=== PATIENT | female | born 1965 | race Caucasian/White ===

== ENCOUNTER 2020-01-26 09:21 | Inpatient (IN) | payer MEDICAID, OTHER ==
[~2020-01-26] VITALS: Ht 154.9 cm; Wt 94.4 kg
[2020-01-26] VITALS (31 sets, daily range): BP systolic 100–175; BP diastolic 40–110
[2020-01-26] MEDS ORDERED: VECURONIUM BROMIDE 10 MG/VIAL IV ONE ×2 (09:33→09:45)
[2020-01-26] MEDS ORDERED: ETOMIDATE 2MG/ML 10ML VIAL IV ONE ×2 (09:33→09:45)
[2020-01-26] MEDS ORDERED: PROPOFOL 10MG/ML 100ML 100 ML IV ONE (09:43)
[2020-01-26] MEDS ORDERED: PROPOFOL 10MG/ML 100ML 100 ML IV SCH (09:45)
[2020-01-26 09:58] LABS: BASOPHILS % 0.4 % (0.0-2.0); HEMATOCRIT. 34.4 % (36.0-48.0); HEMOGLOBIN. 11.1 g/dL (12.0-16.0); LYMPHOCYTES % 31.9 % (20.0-50.0); MEAN CORPUSCULAR HEMOGLOBIN 30.8 pg (28.0-32.0); MEAN CORPUSCULAR VOLUME 95.6 fL (81.0-99.0); MEAN PLATELET VOLUME 10.7 fl (7.4-10.4); MONOCYTES % 8.1 % (2.0-8.0); NEUTROPHILS % 59.6 % (40.0-76.0); PLATELET 90 x1000/uL (130-400); RED CELL DISTRIBUTION WIDTH 23.5 % (11.6-14.6)
[2020-01-26 09:59] LABS: CLARITY URINE CLEAR (CLEAR); COLOR URINE YELLOW (YELLOW); KETONES URINE NEGATIVE (NEGATIVE); LEUKOCYTE ESTERASE URINE NEGATIVE (NEGATIVE); NITRITE URINE NEGATIVE (NEGATIVE); OCCULT BLOOD URINE NEGATIVE (NEGATIVE); PROTEIN URINE 1+ (NEGATIVE); SPECIFIC GRAVITY URINE 1.022 (1.005-1.030)
[2020-01-26 10:07] LABS: CHLORIDE 109 mEq/L (98-107)
[2020-01-26 10:09] LABS: PROTHROMBIN TIME 63.8 sec (9.6-11.0)
[2020-01-26 10:11] LABS: ETHANOL BLOOD < 10 mg/dL
[2020-01-26 10:13] LABS: LDL CHOLESTEROL 51 mg/dL (5-100)
[2020-01-26 10:19] LABS: INR 6.2
[2020-01-26] MEDS ORDERED: NICARDIPINE 40MG/200ML PREMIX 200 ML IV ONE (10:28)
[2020-01-26] MEDS ORDERED: LEVETIRACETAM 500MG PREMIX 100 ML IV ONE (10:30)
[2020-01-26] MEDS ORDERED: ESMOLOL 2500MG PREMIX 250 ML IV ONE (10:30)
[2020-01-26] MEDS ORDERED: NICARDIPINE 40MG/200ML PREMIX 200 ML IV SCH (10:30)
[2020-01-26] MEDS ORDERED: POTASSIUM CHLORIDE INJ 40 MEQ in DEXT 5% WATER 250 ML IV ONE (10:45)
[2020-01-26] MEDS ORDERED: PHYTONADIONE 10 MG in DEXTROSE 5% WATER 50 ML IV ONE (10:45)
[2020-01-26] MEDS ORDERED: MANNITOL 20% 500 ML IV NR (10:45)
[2020-01-26] MEDS ORDERED: MANNITOL 20% (20GM/100ML) BAG 500ML PREMIX IV ONE (10:45)
[2020-01-26] MEDS ORDERED: HUMAN PROTHROMBIN COMPLX (PCC) 500 UNITS VIAL IV NR (11:00)
[2020-01-26] MEDS ORDERED: BACITRACIN 15GM TUBE TOP ONE (11:07)
[2020-01-26] MEDS ORDERED: THROMBIN (BOVINE) 5000 UNITS/VIAL TOP ONE (11:07)
[2020-01-26] MEDS ORDERED: LIDOCAINE HCL/EPINEPHRINE 1%-EPI 1:100,000 20 ML VIAL ONE (11:07)
[2020-01-26] MEDS ORDERED: NORMAL SALINE 0.9% 10 ML SYR ONE (11:07)
[2020-01-26] MEDS ORDERED: BACITRACIN 50,000 UNITS/VIAL ONE (11:08)
[2020-01-26] MEDS ORDERED: PHYTONADIONE 10MG/ML AMP SUBCUT ONE (11:15)
[2020-01-26 11:21] LABS: *AMPHETAMINES SCREEN URINE NEGATIVE (NEGATIVE); *BARBITURATES SCREEN URINE NEGATIVE (NEGATIVE)
[2020-01-26 11:22] LABS: *BENZODIAZEPINES SCREEN URINE NEGATIVE (NEGATIVE); *COCAINE SCREEN URINE NEGATIVE (NEGATIVE); METHADONE URINE SCREEN NEGATIVE (NEGATIVE); OPIATES URINE SCREEN NEGATIVE (NEGATIVE); PHENCYCLIDINE URINE SCREEN NEGATIVE (NEGATIVE)
[2020-01-26 11:23] LABS: CANNABINOID URINE SCREEN NEGATIVE (NEGATIVE)
[2020-01-26 11:42] LABS: PLATELET ESTIMATE DECREASED
[2020-01-26] MEDS ORDERED: FENTANYL CITRATE/PF 50MCG/ML 2ML VIAL ONE ×2 (12:05→12:10)
[2020-01-26] MEDS ORDERED: PROPOFOL 200MG/20ML VIAL IV ONE (12:05)
[2020-01-26] MEDS ORDERED: ESMOLOL HCL 10MG/ML 10ML VIAL IV ONE (12:13)
[2020-01-26] MEDS ORDERED: ESMOLOL 2500MG PREMIX 250 ML IV PRN (12:15)
[2020-01-26] MEDS ORDERED: NICARDIPINE 100 MG in SODIUM CHLORIDE 0.9% 60 ML IV PRN (12:15)
[2020-01-26] MEDS ORDERED: DEXAMETHASONE 4MG/ML 1ML VIAL ONE (12:48)
[2020-01-26] MEDS ORDERED: PHENYLEPHRINE HCL 10 MG/ML 1ML (IV VIAL) IV ONE (12:49)
[2020-01-26] MEDS ORDERED: EPHEDRINE SULFATE 50MG/ML VIAL ONE (12:49)
[2020-01-26] MEDS ORDERED: CEFAZOLIN SODIUM 1000MG/VIAL ONE (12:49)
[2020-01-26] MEDS ORDERED: IOHEXOL-350 100 ML BOTTLE ONE (13:37)
[2020-01-26] MEDS: DEXT 5%/LACTATED RINGERS 1,000 ML IV SCH (13:38)
[2020-01-26] MEDS: MORPHINE SULFATE 4 MG/ML CPJ (NOT FOR IM USE) IV NR ×2 (13:59→16:58)
[2020-01-26] MEDS: NICARDIPINE 100 MG in SODIUM CHLORIDE 0.9% 60 ML IV PRN ×2 (14:00→21:15)
[2020-01-26 14:18] LABS: BG BASE EXCESS -4.7 mmol/L (-2.0-2.0); BG CARBOXYHEMOGLOBIN 0.3 % (0.5-1.5); BG DEOXYHEMOGLOBIN 0.5 % (0.0-5.0); BG FRACTION INSPIRED OXYGEN 100; BG HCO3 ACT 20.5 mmol/L (22.0-26.0); BG METHEMOGLOBIN 0.1 % (0.0-1.5); BG OXYGEN SATURATION 99.5 % (92.0-98.5); BG OXYHEMOGLOBIN 99.1 % (94.0-97.0); BG PCO2 38.5 mmHg (35.0-45.0); BG PH 7.345 (7.350-7.450); BG PO2 385.7 mmHg (75.0-100.0); BG SAMPLE SITE A-LINE; BG TIDAL VOLUME(mL) 500 mL; BG TOTAL HEMOGLOBIN 10.2 g/dL (12.0-18.0); BG VENT MODE VENT - A/C; BG VENT RATE 12 set
[2020-01-26] MEDS ORDERED: LORAZEPAM 2MG/ML CPJ IV PRN (14:30)
[2020-01-26] MEDS ORDERED: MORPHINE SULFATE 4 MG/ML CPJ (NOT FOR IM USE) IV NR (15:00)
[2020-01-26] MEDS: LEVETIRACETAM 500MG PREMIX 100 ML IV SCH (16:45)
[2020-01-26] MEDS ORDERED: IPRATROPIUM/ALBUTEROL 0.5-3(2.5)MG/3ML NEB HHN PRN (17:00)
[2020-01-26 17:30] LABS: INR 1.9; PROTHROMBIN TIME 20.6 sec (9.6-11.0)
[2020-01-26] MEDS ORDERED: PHENYTOIN SODIUM 500 MG in SODIUM CHLORIDE 0.9% 50 ML IV NR (18:30)
[2020-01-26] MEDS: CEFAZOLIN 1000MG PREMIX 50 ML IV SCH (21:24)
[2020-01-26] MEDS: MORPHINE SULFATE 4 MG/ML CPJ (NOT FOR IM USE) IV PRN (22:42)
[2020-01-26] MEDS: PHENYTOIN SODIUM 100MG/2ML VIAL IV SCH (22:42)
[2020-01-27] VITALS (83 sets, daily range): BP systolic 105–147; BP diastolic 39–53
[2020-01-27] MEDS: NICARDIPINE 100 MG in SODIUM CHLORIDE 0.9% 60 ML IV PRN ×3 (03:07→23:11)
[2020-01-27 06:29] LABS: CHLORIDE 115 mEq/L (98-107)
[2020-01-27] MEDS: PHENYTOIN SODIUM 100MG/2ML VIAL IV SCH ×3 (06:42→22:05)
[2020-01-27] MEDS: CEFAZOLIN 1000MG PREMIX 50 ML IV SCH ×3 (06:42→22:05)
[2020-01-27 06:51] LABS: HEMATOCRIT. 25.5 % (36.0-48.0); HEMOGLOBIN. 8.3 g/dL (12.0-16.0); MEAN CORPUSCULAR HEMOGLOBIN 31.4 pg (28.0-32.0); MEAN CORPUSCULAR VOLUME 96.6 fL (81.0-99.0); MEAN PLATELET VOLUME 10.8 fl (7.4-10.4); PLATELET 68 x1000/uL (130-400); RED BLOOD CELL COUNT 2.64 mill/uL (4.2-5.4); RED CELL DISTRIBUTION WIDTH 23.9 % (11.6-14.6)
[2020-01-27] MEDS: LEVETIRACETAM 500MG PREMIX 100 ML IV SCH ×2 (08:36→22:05)
[2020-01-27] MEDS: PANTOPRAZOLE SODIUM 40 MG/VIAL IV SCH (08:36)
[2020-01-27] MEDS: MORPHINE SULFATE 4 MG/ML CPJ (NOT FOR IM USE) IV PRN ×2 (08:38→22:09)
[2020-01-27 08:48] LABS: BG BASE EXCESS -0.9 mmol/L (-2.0-2.0); BG CARBOXYHEMOGLOBIN 0.8 % (0.5-1.5); BG DEOXYHEMOGLOBIN 1.8 % (0.0-5.0); BG FRACTION INSPIRED OXYGEN 40; BG HCO3 ACT 23.9 mmol/L (22.0-26.0); BG METHEMOGLOBIN 0.5 % (0.0-1.5); BG OXYGEN SATURATION 98.2 % (92.0-98.5); BG OXYHEMOGLOBIN 96.9 % (94.0-97.0); BG PCO2 39.9 mmHg (35.0-45.0); BG PH 7.395 (7.350-7.450); BG PO2 122.3 mmHg (75.0-100.0); BG SAMPLE SITE A-LINE; BG TIDAL VOLUME(mL) 500 mL; BG TOTAL HEMOGLOBIN 8.7 g/dL (12.0-18.0); BG VENT MODE VENT - A/C; BG VENT RATE 12 set
[2020-01-27] MEDS ORDERED: METF-414 MT (17:50)
[2020-01-27] MEDS ORDERED: PRED10TA23 MT (17:50)
[2020-01-27] MEDS ORDERED: DOCU-150 MT (17:51)
[2020-01-27 18:26] LABS: NUCLEATED RED BLOOD CELLS 2 /100 WBC; PLATELET ESTIMATE DECREASED
[2020-01-28] VITALS (128 sets, daily range): BP systolic 90–145; BP diastolic 26–71
[2020-01-28] MEDS: MORPHINE SULFATE 4 MG/ML CPJ (NOT FOR IM USE) IV PRN ×2 (01:10→20:23)
[2020-01-28] MEDS: ACETAMINOPHEN 650MG SUPP PR PRN ×2 (03:03→12:21)
[2020-01-28] MEDS: CEFAZOLIN 1000MG PREMIX 50 ML IV SCH ×3 (05:17→23:05)
[2020-01-28] MEDS: NICARDIPINE 100 MG in SODIUM CHLORIDE 0.9% 60 ML IV PRN ×3 (05:19→23:05)
[2020-01-28] MEDS: PHENYTOIN SODIUM 100MG/2ML VIAL IV SCH ×3 (06:09→23:05)
[2020-01-28 06:32] LABS: CHLORIDE 119 mEq/L (98-107)
[2020-01-28] MEDS ORDERED: SODIUM BICARBONATE 4% (2.4MEQ) 5ML VIAL IV ONE (09:11)
[2020-01-28] MEDS ORDERED: LIDOCAINE HCL 1% 20ML VIAL (Pyxis) INJ ONE (09:11)
[2020-01-28] MEDS: PANTOPRAZOLE SODIUM 40 MG/VIAL IV SCH (09:14)
[2020-01-28] MEDS: LEVETIRACETAM 500MG PREMIX 100 ML IV SCH ×2 (09:15→20:17)
[2020-01-28] MEDS: DEXT 5%/LACTATED RINGERS 1,000 ML IV SCH ×3 (09:15→23:54)
[2020-01-28 11:09] LABS: HEMATOCRIT. 21.5 % (36.0-48.0); MEAN CORPUSCULAR HEMOGLOBIN 30.7 pg (28.0-32.0); MEAN CORPUSCULAR VOLUME 97.3 fL (81.0-99.0); MEAN PLATELET VOLUME 10.7 fl (7.4-10.4); RED BLOOD CELL COUNT 2.21 mill/uL (4.2-5.4); RED CELL DISTRIBUTION WIDTH 22.7 % (11.6-14.6)
[2020-01-28 11:51] LABS: HEMOGLOBIN. 6.8 g/dL (12.0-16.0)
[2020-01-28 11:52] LABS: PLATELET 47 x1000/uL (130-400)
[2020-01-28 17:46] LABS: PLATELET ESTIMATE MARKEDLY DECREASED
[2020-01-29] VITALS (94 sets, daily range): BP systolic 106–150; BP diastolic 33–131
[2020-01-29] MEDS: ACETAMINOPHEN 650MG SUPP PR PRN (00:02)
[2020-01-29] MEDS: PHENYTOIN SODIUM 100MG/2ML VIAL IV SCH ×3 (05:19→23:07)
[2020-01-29] MEDS: CEFAZOLIN 1000MG PREMIX 50 ML IV SCH ×3 (05:20→23:06)
[2020-01-29] MEDS: NICARDIPINE 100 MG in SODIUM CHLORIDE 0.9% 60 ML IV PRN (09:38)
[2020-01-29] MEDS: PANTOPRAZOLE SODIUM 40 MG/VIAL IV SCH (09:38)
[2020-01-29] MEDS: LEVETIRACETAM 500MG PREMIX 100 ML IV SCH ×2 (09:38→20:39)
[2020-01-29] MEDS: ACETAMINOPHEN 650MG/20.3ML UDC NG PRN (16:50)
[2020-01-29 23:55] LABS: BASOPHILS % 0.2 % (0.0-2.0); HEMATOCRIT. 27.3 % (36.0-48.0); HEMOGLOBIN. 8.7 g/dL (12.0-16.0); LYMPHOCYTES % 18.5 % (20.0-50.0); MEAN CORPUSCULAR HEMOGLOBIN 30.5 pg (28.0-32.0); MEAN CORPUSCULAR VOLUME 95.2 fL (81.0-99.0); MEAN PLATELET VOLUME 11.1 fl (7.4-10.4); MONOCYTES % 12.1 % (2.0-8.0); NEUTROPHILS % 69.2 % (40.0-76.0); RED BLOOD CELL COUNT 2.86 mill/uL (4.2-5.4); RED CELL DISTRIBUTION WIDTH 22.2 % (11.6-14.6)
[2020-01-30] VITALS (92 sets, daily range): BP systolic 88–145; BP diastolic 31–71
[2020-01-30 00:07] LABS: PLATELET 31 x1000/uL (130-400)
[2020-01-30 00:31] LABS: CHLORIDE 121 mEq/L (98-107)
[2020-01-30] MEDS: DEXT 5%/LACTATED RINGERS 1,000 ML IV SCH (01:23)
[2020-01-30] MEDS: MORPHINE SULFATE 4 MG/ML CPJ (NOT FOR IM USE) IV PRN (01:30)
[2020-01-30] MEDS: ACETAMINOPHEN 650MG/20.3ML UDC NG PRN ×3 (02:00→17:23)
[2020-01-30] MEDS: PHENYTOIN SODIUM 100MG/2ML VIAL IV SCH ×3 (05:58→21:58)
[2020-01-30] MEDS: CEFAZOLIN 1000MG PREMIX 50 ML IV SCH ×3 (05:58→21:57)
[2020-01-30] MEDS: PANTOPRAZOLE SODIUM 40 MG/VIAL IV SCH (08:11)
[2020-01-30] MEDS: LEVETIRACETAM 500MG PREMIX 100 ML IV SCH ×2 (08:11→21:57)
[2020-01-30 10:48] LABS: BG CARBOXYHEMOGLOBIN 0.6 % (0.5-1.5); BG DEOXYHEMOGLOBIN 1.2 % (0.0-5.0); BG FRACTION INSPIRED OXYGEN 40; BG HCO3 ACT 26.8 mmol/L (22.0-26.0); BG METHEMOGLOBIN 0.1 % (0.0-1.5); BG OXYGEN SATURATION 98.8 % (92.0-98.5); BG OXYHEMOGLOBIN 98.1 % (94.0-97.0); BG PCO2 37.8 mmHg (35.0-45.0); BG PH 7.469 (7.350-7.450); BG PO2 161.1 mmHg (75.0-100.0); BG SAMPLE SITE RIGHT RADIAL; BG TIDAL VOLUME(mL) 500 mL; BG TOTAL HEMOGLOBIN 8.1 g/dL (12.0-18.0); BG VENT MODE VENT - A/C; BG VENT RATE 12 set
[2020-01-31] VITALS (96 sets, daily range): BP systolic 106–152; BP diastolic 34–76
[2020-01-31] MEDS: PHENYTOIN SODIUM 100MG/2ML VIAL IV SCH ×3 (06:02→21:05)
[2020-01-31] MEDS: CEFAZOLIN 1000MG PREMIX 50 ML IV SCH ×3 (06:03→22:39)
[2020-01-31] MEDS: LEVETIRACETAM 500MG PREMIX 100 ML IV SCH ×2 (09:28→21:05)
[2020-01-31] MEDS: PANTOPRAZOLE SODIUM 40 MG/VIAL IV SCH (09:28)
[2020-01-31 13:26] LABS: HEMATOCRIT 23.6 % (36.0-48.0); HEMOGLOBIN 7.5 g/dL (12.0-16.0); MEAN CORPUSCULAR HEMOGLOBIN 30.2 pg (28.0-32.0); MEAN CORPUSCULAR VOLUME 95.1 fL (81.0-99.0); RED BLOOD CELL COUNT 2.48 mill/uL (4.2-5.4); RED CELL DISTRIBUTION WIDTH 21.5 % (11.6-14.6)
[2020-01-31 13:29] LABS: PLATELET 28 x1000/uL (130-400)
[2020-01-31 13:38] LABS: CHLORIDE 119 mEq/L (98-107)
[2020-01-31] MEDS: ACETAMINOPHEN 650MG/20.3ML UDC NG PRN (21:05)
[2020-02-01] VITALS (69 sets, daily range): BP systolic 84–164; BP diastolic 32–127
[2020-02-01] MEDS: ACETAMINOPHEN 650MG/20.3ML UDC NG PRN ×2 (06:52→17:29)
[2020-02-01] MEDS: PHENYTOIN SODIUM 100MG/2ML VIAL IV SCH ×3 (06:52→21:10)
[2020-02-01 07:45] LABS: CHLORIDE 117 mEq/L (98-107)
[2020-02-01 08:45] LABS: BASOPHILS % 0.3 % (0.0-2.0); HEMATOCRIT. 22.7 % (36.0-48.0); HEMOGLOBIN. 7.2 g/dL (12.0-16.0); LYMPHOCYTES % 27.5 % (20.0-50.0); MEAN CORPUSCULAR HEMOGLOBIN 30.1 pg (28.0-32.0); MEAN CORPUSCULAR VOLUME 95.1 fL (81.0-99.0); MEAN PLATELET VOLUME 10.5 fl (7.4-10.4); MONOCYTES % 9.5 % (2.0-8.0); NEUTROPHILS % 62.7 % (40.0-76.0); RED BLOOD CELL COUNT 2.39 mill/uL (4.2-5.4); RED CELL DISTRIBUTION WIDTH 21.1 % (11.6-14.6)
[2020-02-01] MEDS: LEVETIRACETAM 500MG PREMIX 100 ML IV SCH ×2 (09:41→20:53)
[2020-02-01] MEDS: PANTOPRAZOLE SODIUM 40 MG/VIAL IV SCH (09:42)
[2020-02-01 10:56] LABS: PLATELET 27 x1000/uL (130-400)
[2020-02-01 10:57] LABS: PLATELET ESTIMATE MARKEDLY DECREASED
[2020-02-02] VITALS (34 sets, daily range): BP systolic 94–124; BP diastolic 39–77
[2020-02-02] MEDS: ACETAMINOPHEN 650MG/20.3ML UDC NG PRN ×3 (00:25→19:24)
[2020-02-02] MEDS: PHENYTOIN SODIUM 100MG/2ML VIAL IV SCH ×3 (05:01→21:01)
[2020-02-02 07:04] LABS: BASOPHILS % 0.2 % (0.0-2.0); HEMATOCRIT. 21.9 % (36.0-48.0); LYMPHOCYTES % 21.7 % (20.0-50.0); MEAN CORPUSCULAR VOLUME 95.4 fL (81.0-99.0); MEAN PLATELET VOLUME 11.6 fl (7.4-10.4); MONOCYTES % 8.9 % (2.0-8.0); NEUTROPHILS % 69.2 % (40.0-76.0)
[2020-02-02 07:12] LABS: HEMOGLOBIN. 6.9 g/dL (12.0-16.0); PLATELET 27 x1000/uL (130-400)
[2020-02-02 07:26] LABS: CHLORIDE 118 mEq/L (98-107)
[2020-02-02] MEDS: LEVETIRACETAM 500MG PREMIX 100 ML IV SCH ×2 (09:32→20:15)
[2020-02-02] MEDS: PANTOPRAZOLE SODIUM 40 MG/VIAL IV SCH (09:33)
[2020-02-02 09:53] LABS: BG BASE EXCESS 2.7 mmol/L (-2.0-2.0); BG CARBOXYHEMOGLOBIN 0.3 % (0.5-1.5); BG DEOXYHEMOGLOBIN 2.3 % (0.0-5.0); BG FRACTION INSPIRED OXYGEN 35; BG HCO3 ACT 26.7 mmol/L (22.0-26.0); BG METHEMOGLOBIN 0.4 % (0.0-1.5); BG OXYGEN SATURATION 97.7 % (92.0-98.5); BG PCO2 38.6 mmHg (35.0-45.0); BG PH 7.458 (7.350-7.450); BG PO2 115.1 mmHg (75.0-100.0); BG SAMPLE SITE RIGHT RADIAL; BG TIDAL VOLUME(mL) 500 mL; BG TOTAL HEMOGLOBIN 7.8 g/dL (12.0-18.0); BG VENT MODE VENT - A/C; BG VENT RATE 12 set
[2020-02-02] MEDS: BLOOD SUGAR DIAGNOSTIC STRIP TEST SCH ×3 (12:47→23:45)
[2020-02-02 18:18] LABS: HEMOGLOBIN 7.1 g/dL (12.0-16.0)
[2020-02-02] MEDS: SODIUM CHLORIDE 0.9% 1,000 ML IV SCH (18:54)
[2020-02-03] VITALS (43 sets, daily range): BP systolic 88–126; BP diastolic 38–67
[2020-02-03] MEDS: BLOOD SUGAR DIAGNOSTIC STRIP TEST SCH ×4 (05:49→23:53)
[2020-02-03] MEDS: PHENYTOIN SODIUM 100MG/2ML VIAL IV SCH ×3 (05:49→21:06)
[2020-02-03 06:48] LABS: BASOPHILS % 0.3 % (0.0-2.0); HEMATOCRIT. 22.1 % (36.0-48.0); HEMOGLOBIN. 7.2 g/dL (12.0-16.0); LYMPHOCYTES % 18.2 % (20.0-50.0); MEAN CORPUSCULAR HEMOGLOBIN 31.3 pg (28.0-32.0); MEAN CORPUSCULAR VOLUME 95.6 fL (81.0-99.0); MEAN PLATELET VOLUME 10.9 fl (7.4-10.4); MONOCYTES % 8.5 % (2.0-8.0); RED BLOOD CELL COUNT 2.31 mill/uL (4.2-5.4); RED CELL DISTRIBUTION WIDTH 19.6 % (11.6-14.6)
[2020-02-03 07:45] LABS: CHLORIDE 119 mEq/L (98-107)
[2020-02-03 08:35] LABS: PLATELET 38 x1000/uL (130-400)
[2020-02-03] MEDS: LEVETIRACETAM 500MG PREMIX 100 ML IV SCH ×2 (08:45→21:06)
[2020-02-03] MEDS: PANTOPRAZOLE SODIUM 40 MG/VIAL IV SCH (08:45)
[2020-02-03] MEDS ORDERED: SODIUM CHLORIDE 0.9% 500 ML IV NR (10:30)
[2020-02-03] MEDS: SODIUM CHLORIDE 0.9% 1,000 ML IV SCH (14:16)
[2020-02-03 19:42] LABS: HEMATOCRIT 23.5 % (36.0-48.0); HEMOGLOBIN 7.7 g/dL (12.0-16.0)
[2020-02-04] VITALS (59 sets, daily range): BP systolic 97–124; BP diastolic 33–100
[2020-02-04] MEDS: PHENYTOIN SODIUM 100MG/2ML VIAL IV SCH ×3 (05:32→21:01)
[2020-02-04] MEDS: BLOOD SUGAR DIAGNOSTIC STRIP TEST SCH ×4 (05:32→23:39)
[2020-02-04 07:07] LABS: INR 1.1
[2020-02-04 07:11] LABS: BASOPHILS % 0.2 % (0.0-2.0); HEMATOCRIT. 23.6 % (36.0-48.0); HEMOGLOBIN. 7.5 g/dL (12.0-16.0); LYMPHOCYTES % 17.1 % (20.0-50.0); MEAN CORPUSCULAR HEMOGLOBIN 30.4 pg (28.0-32.0); MEAN CORPUSCULAR VOLUME 96.1 fL (81.0-99.0); MEAN PLATELET VOLUME 11.1 fl (7.4-10.4); MONOCYTES % 6.9 % (2.0-8.0); NEUTROPHILS % 75.8 % (40.0-76.0); RED BLOOD CELL COUNT 2.45 mill/uL (4.2-5.4); RED CELL DISTRIBUTION WIDTH 19.5 % (11.6-14.6)
[2020-02-04 07:25] LABS: PLATELET 37 x1000/uL (130-400)
[2020-02-04 07:28] LABS: CHLORIDE 122 mEq/L (98-107)
[2020-02-04] MEDS: PANTOPRAZOLE SODIUM 40 MG/VIAL IV SCH ×2 (08:19→21:02)
[2020-02-04] MEDS: MULTIVITAMINS,THER W-MINERALS TABLET PO SCH (08:19)
[2020-02-04] MEDS: LEVETIRACETAM 500MG PREMIX 100 ML IV SCH ×2 (08:19→21:01)
[2020-02-04] MEDS: SODIUM CHLORIDE 0.9% 1,000 ML IV SCH (09:23)
[2020-02-04] MEDS: ACETAMINOPHEN 650MG/20.3ML UDC NG PRN (11:09)
[2020-02-05] VITALS (57 sets, daily range): BP systolic 97–123; BP diastolic 38–68
[2020-02-05] MEDS: PHENYTOIN SODIUM 100MG/2ML VIAL IV SCH ×3 (05:22→22:07)
[2020-02-05] MEDS: BLOOD SUGAR DIAGNOSTIC STRIP TEST SCH ×3 (05:22→18:03)
[2020-02-05] MEDS: SODIUM CHLORIDE 0.9% 1,000 ML IV SCH (05:43)
[2020-02-05 07:42] LABS: INR 1.1; PROTHROMBIN TIME 11.7 sec (9.6-11.0)
[2020-02-05 07:52] LABS: CHLORIDE 121 mEq/L (98-107)
[2020-02-05 08:22] LABS: BASOPHILS % 0.2 % (0.0-2.0); HEMATOCRIT. 22.6 % (36.0-48.0); HEMOGLOBIN. 7.1 g/dL (12.0-16.0); LYMPHOCYTES % 18.4 % (20.0-50.0); MEAN CORPUSCULAR HEMOGLOBIN 30.2 pg (28.0-32.0); MEAN CORPUSCULAR VOLUME 95.9 fL (81.0-99.0); MONOCYTES % 5.6 % (2.0-8.0); NEUTROPHILS % 75.8 % (40.0-76.0); RED BLOOD CELL COUNT 2.36 mill/uL (4.2-5.4); RED CELL DISTRIBUTION WIDTH 18.9 % (11.6-14.6)
[2020-02-05] MEDS: MULTIVITAMINS,THER W-MINERALS TABLET PO SCH (09:20)
[2020-02-05] MEDS: DEXTROSE 5% WATER 1,000 ML IV SCH (09:21)
[2020-02-05] MEDS: PANTOPRAZOLE SODIUM 40 MG/VIAL IV SCH ×2 (09:21→22:07)
[2020-02-05] MEDS: LEVETIRACETAM 500MG PREMIX 100 ML IV SCH ×2 (09:21→22:07)
[2020-02-05 09:40] LABS: PLATELET ESTIMATE MARKEDLY DECREASED
[2020-02-05 09:41] LABS: PLATELET 37 x1000/uL (130-400)
[2020-02-05] MEDS: ACETAMINOPHEN 650MG/20.3ML UDC NG PRN (11:03)
[2020-02-05] MEDS: IPRATROPIUM/ALBUTEROL 0.5-3(2.5)MG/3ML NEB HHN SCH (19:55)
[2020-02-05] MEDS: ACETYLCYSTEINE 100MG/ML 10% VIAL 4ML INH SCH (19:55)
[2020-02-06] VITALS (64 sets, daily range): BP systolic 95–123; BP diastolic 27–72
[2020-02-06] MEDS: BLOOD SUGAR DIAGNOSTIC STRIP TEST SCH ×4 (00:31→18:00)
[2020-02-06] MEDS: IPRATROPIUM/ALBUTEROL 0.5-3(2.5)MG/3ML NEB HHN SCH ×4 (01:38→20:34)
[2020-02-06] MEDS: DEXTROSE 5% WATER 1,000 ML IV SCH (06:07)
[2020-02-06] MEDS: PHENYTOIN SODIUM 100MG/2ML VIAL IV SCH ×3 (06:19→21:41)
[2020-02-06] MEDS: LEVETIRACETAM 500MG PREMIX 100 ML IV SCH ×2 (08:25→21:41)
[2020-02-06] MEDS: MULTIVITAMINS,THER W-MINERALS TABLET PO SCH (08:26)
[2020-02-06] MEDS: PANTOPRAZOLE SODIUM 40 MG/VIAL IV SCH ×2 (08:26→21:41)
[2020-02-06] MEDS: ACETYLCYSTEINE 100MG/ML 10% VIAL 4ML INH SCH ×2 (09:28→20:34)
[2020-02-06 10:17] LABS: BASOPHILS % 0.3 % (0.0-2.0); EOSINOPHILS % 0.1 % (0.0-5.0); HEMOGLOBIN. 7.7 g/dL (12.0-16.0); LYMPHOCYTES % 33.2 % (20.0-50.0); MEAN CORPUSCULAR HEMOGLOBIN 30.7 pg (28.0-32.0); MEAN CORPUSCULAR VOLUME 95.5 fL (81.0-99.0); MEAN PLATELET VOLUME 11.2 fl (7.4-10.4); MONOCYTES % 5.9 % (2.0-8.0); NEUTROPHILS % 60.5 % (40.0-76.0); RED BLOOD CELL COUNT 2.51 mill/uL (4.2-5.4); RED CELL DISTRIBUTION WIDTH 18.5 % (11.6-14.6)
[2020-02-06 10:23] LABS: PLATELET 36 x1000/uL (130-400)
[2020-02-06 10:25] LABS: INR 1.1
[2020-02-06 10:28] LABS: CHLORIDE 120 mEq/L (98-107)
[2020-02-06] MEDS: ACETAMINOPHEN 650MG/20.3ML UDC NG PRN (15:56)
[2020-02-07] VITALS (51 sets, daily range): BP systolic 88–110; BP diastolic 37–60
[2020-02-07] MEDS: BLOOD SUGAR DIAGNOSTIC STRIP TEST SCH ×4 (00:57→23:49)
[2020-02-07] MEDS: IPRATROPIUM/ALBUTEROL 0.5-3(2.5)MG/3ML NEB HHN SCH ×4 (02:41→19:59)
[2020-02-07] MEDS: ACETAMINOPHEN 650MG SUPP PR PRN (05:13)
[2020-02-07] MEDS: DEXTROSE 5% WATER 1,000 ML IV SCH (05:58)
[2020-02-07] MEDS: PHENYTOIN SODIUM 100MG/2ML VIAL IV SCH ×3 (06:03→21:32)
[2020-02-07] MEDS ORDERED: DIPHENHYDRAMINE 50MG/ML VIAL IV NR (06:15)
[2020-02-07] MEDS ORDERED: CEFAZOLIN 1000MG PREMIX 50 ML IV PRN (09:00)
[2020-02-07] MEDS: LEVETIRACETAM 500MG PREMIX 100 ML IV SCH ×2 (09:00→21:32)
[2020-02-07] MEDS: MULTIVITAMINS,THER W-MINERALS TABLET PO SCH (09:00)
[2020-02-07] MEDS: ACETYLCYSTEINE 100MG/ML 10% VIAL 4ML INH SCH ×2 (09:00→19:59)
[2020-02-07] MEDS: PANTOPRAZOLE SODIUM 40 MG/VIAL IV SCH ×2 (09:00→21:32)
[2020-02-07] MEDS ORDERED: ROCURONIUM BROMIDE 10MG/ML VIAL 5ML IV ONE (10:13)
[2020-02-07 11:05] LABS: MEAN CORPUSCULAR HEMOGLOBIN 31.1 pg (28.0-32.0); MEAN CORPUSCULAR VOLUME 95.5 fL (81.0-99.0); MEAN PLATELET VOLUME 10.7 fl (7.4-10.4); RED CELL DISTRIBUTION WIDTH 18.1 % (11.6-14.6)
[2020-02-07 11:07] LABS: CHLORIDE 117 mEq/L (98-107)
[2020-02-07 11:11] LABS: INR 1.1; PROTHROMBIN TIME 12.2 sec (9.6-11.0)
[2020-02-07 11:27] LABS: HEMATOCRIT. 18.1 % (36.0-48.0); HEMOGLOBIN. 5.9 g/dL (12.0-16.0); PLATELET 45 x1000/uL (130-400)
[2020-02-07] MEDS ORDERED: MIDAZOLAM HCL 5 MG/5 ML VIAL ONE (11:42)
[2020-02-07] MEDS ORDERED: FENTANYL CITRATE/PF 50MCG/ML 2ML VIAL ONE (11:42)
[2020-02-07 12:08] LABS: PLATELET ESTIMATE MARKEDLY DECREASED
[2020-02-08] VITALS (106 sets, daily range): BP systolic 79–120; BP diastolic 31–73
[2020-02-08] MEDS: ACETYLCYSTEINE 100MG/ML 10% VIAL 4ML INH SCH ×3 (01:21→14:05)
[2020-02-08] MEDS: IPRATROPIUM/ALBUTEROL 0.5-3(2.5)MG/3ML NEB HHN SCH ×4 (01:21→20:35)
[2020-02-08] MEDS: BLOOD SUGAR DIAGNOSTIC STRIP TEST SCH ×3 (06:27→18:33)
[2020-02-08] MEDS: PHENYTOIN SODIUM 100MG/2ML VIAL IV SCH ×3 (06:29→21:11)
[2020-02-08 06:41] LABS: BASOPHILS % 0.3 % (0.0-2.0); EOSINOPHILS % 0.1 % (0.0-5.0); HEMATOCRIT. 21.7 % (36.0-48.0); HEMOGLOBIN. 7.2 g/dL (12.0-16.0); LYMPHOCYTES % 21.9 % (20.0-50.0); MEAN CORPUSCULAR HEMOGLOBIN 30.3 pg (28.0-32.0); MEAN CORPUSCULAR VOLUME 91.1 fL (81.0-99.0); MEAN PLATELET VOLUME 10.1 fl (7.4-10.4); MONOCYTES % 8.3 % (2.0-8.0); NEUTROPHILS % 69.4 % (40.0-76.0); RED BLOOD CELL COUNT 2.38 mill/uL (4.2-5.4); RED CELL DISTRIBUTION WIDTH 19.3 % (11.6-14.6)
[2020-02-08 07:22] LABS: CHLORIDE 117 mEq/L (98-107)
[2020-02-08 07:53] LABS: PLATELET 49 x1000/uL (130-400)
[2020-02-08] MEDS: MULTIVITAMINS,THER W-MINERALS TABLET PO SCH (09:00)
[2020-02-08] MEDS ORDERED: CEFAZOLIN 1000MG PREMIX 50 ML IV SCH (09:30)
[2020-02-08] MEDS: LEVETIRACETAM 500MG PREMIX 100 ML IV SCH ×2 (09:36→21:12)
[2020-02-08] MEDS: PANTOPRAZOLE SODIUM 40 MG/VIAL IV SCH ×2 (09:37→21:11)
[2020-02-08] MEDS: DEXTROSE 5% WATER 1,000 ML IV SCH ×2 (09:37→16:12)
[2020-02-08] MEDS: METOCLOPRAMIDE HCL 10MG/2ML VIAL IV SCH (18:23)
[2020-02-08] MEDS: ACETAMINOPHEN 650MG/20.3ML UDC NG PRN (19:51)
[2020-02-09] VITALS (53 sets, daily range): BP systolic 93–141; BP diastolic 33–76
[2020-02-09] MEDS: BLOOD SUGAR DIAGNOSTIC STRIP TEST SCH ×4 (00:21→17:33)
[2020-02-09] MEDS: METOCLOPRAMIDE HCL 10MG/2ML VIAL IV SCH (00:23)
[2020-02-09] MEDS: IPRATROPIUM/ALBUTEROL 0.5-3(2.5)MG/3ML NEB HHN SCH ×4 (00:49→21:00)
[2020-02-09] MEDS: ACETYLCYSTEINE 100MG/ML 10% VIAL 4ML INH SCH ×2 (00:49→08:20)
[2020-02-09 05:07] LABS: BASOPHILS % 0.7 % (0.0-2.0); EOSINOPHILS % 0.1 % (0.0-5.0); HEMATOCRIT. 29.9 % (36.0-48.0); HEMOGLOBIN. 10.1 g/dL (12.0-16.0); LYMPHOCYTES % 17.4 % (20.0-50.0); MEAN CORPUSCULAR HEMOGLOBIN 30.4 pg (28.0-32.0); MEAN CORPUSCULAR VOLUME 90.2 fL (81.0-99.0); MEAN PLATELET VOLUME 10.5 fl (7.4-10.4); NEUTROPHILS % 74.8 % (40.0-76.0); RED BLOOD CELL COUNT 3.32 mill/uL (4.2-5.4)
[2020-02-09 05:12] LABS: PLATELET 45 x1000/uL (130-400)
[2020-02-09 05:14] LABS: INR 1.3; PARTIAL THROMBOPLASTIN TIME 29.1 sec (23.4-31.0); PROTHROMBIN TIME 13.7 sec (9.6-11.0)
[2020-02-09 05:15] LABS: CHLORIDE 117 mEq/L (98-107)
[2020-02-09] MEDS ORDERED: PHYTONADIONE 10MG/ML AMP SUBCUT SCH (05:45)
[2020-02-09] MEDS ORDERED: METOCLOPRAMIDE HCL 10MG/2ML VIAL IV SCH ×2 (05:45→10:00)
[2020-02-09] MEDS: PHENYTOIN SODIUM 100MG/2ML VIAL IV SCH ×3 (06:26→21:13)
[2020-02-09] MEDS: MULTIVITAMINS,THER W-MINERALS TABLET PO SCH (09:00)
[2020-02-09] MEDS: LEVETIRACETAM 500MG PREMIX 100 ML IV SCH ×2 (10:54→21:14)
[2020-02-09] MEDS: PANTOPRAZOLE SODIUM 40 MG/VIAL IV SCH ×2 (10:54→21:13)
[2020-02-09] MEDS ORDERED: MIDAZOLAM HCL 5 MG/5 ML VIAL ONE (12:08)
[2020-02-09] MEDS ORDERED: FENTANYL CITRATE/PF 50MCG/ML 2ML VIAL ONE (12:08)
[2020-02-09] MEDS ORDERED: MIDAZOLAM HCL 2 MG/2 ML VIAL IV PRN (12:25)
[2020-02-09] MEDS ORDERED: CEFAZOLIN 1000MG PREMIX 50 ML IV SCH (13:00)
[2020-02-09] MEDS: DEXTROSE 5% WATER 1,000 ML IV SCH (15:54)
[2020-02-09] MEDS: ACETAMINOPHEN 650MG/20.3ML UDC NG PRN (21:13)
[2020-02-10] VITALS (25 sets, daily range): BP systolic 93–166; BP diastolic 37–109
[2020-02-10] MEDS: PHENYTOIN SODIUM 100MG/2ML VIAL IV SCH ×3 (05:07→22:47)
[2020-02-10] MEDS: BLOOD SUGAR DIAGNOSTIC STRIP TEST SCH ×2 (05:33)
[2020-02-10] MEDS: ACETYLCYSTEINE 100MG/ML 10% VIAL 4ML INH SCH (09:08)
[2020-02-10] MEDS: IPRATROPIUM/ALBUTEROL 0.5-3(2.5)MG/3ML NEB HHN SCH ×3 (09:08→22:04)
[2020-02-10] MEDS: MULTIVITAMINS,THER W-MINERALS TABLET PO SCH (09:47)
[2020-02-10] MEDS: PANTOPRAZOLE SODIUM 40 MG/VIAL IV SCH ×2 (09:47→21:08)
[2020-02-10] MEDS: LEVETIRACETAM 500MG PREMIX 100 ML IV SCH ×2 (09:48→21:08)
[2020-02-10] MEDS: DEXTROSE 5% WATER 1,000 ML IV SCH (09:48)
[2020-02-10] MEDS: ACETAMINOPHEN 650MG/20.3ML UDC NG PRN (11:55)
[2020-02-11] VITALS (12 sets, daily range): BP systolic 109–158; BP diastolic 42–97
[2020-02-11] MEDS: PHENYTOIN SODIUM 100MG/2ML VIAL IV SCH ×3 (05:04→21:20)
[2020-02-11] MEDS: DEXTROSE 5% WATER 1,000 ML IV SCH (05:28)
[2020-02-11 07:30] LABS: HEMATOCRIT. 25.8 % (36.0-48.0); HEMOGLOBIN. 8.6 g/dL (12.0-16.0); MEAN CORPUSCULAR HEMOGLOBIN 30.5 pg (28.0-32.0); MEAN CORPUSCULAR VOLUME 91.4 fL (81.0-99.0); MEAN PLATELET VOLUME 11.1 fl (7.4-10.4); RED BLOOD CELL COUNT 2.82 mill/uL (4.2-5.4); RED CELL DISTRIBUTION WIDTH 17.7 % (11.6-14.6)
[2020-02-11 07:42] LABS: CHLORIDE 114 mEq/L (98-107)
[2020-02-11 07:58] LABS: PLATELET 41 x1000/uL (130-400)
[2020-02-11] MEDS: IPRATROPIUM/ALBUTEROL 0.5-3(2.5)MG/3ML NEB HHN SCH ×3 (08:00→20:41)
[2020-02-11 09:18] LABS: INR 1.1; PROTHROMBIN TIME 12.1 sec (9.6-11.0)
[2020-02-11] MEDS: LEVETIRACETAM 500MG PREMIX 100 ML IV SCH ×2 (10:28→21:20)
[2020-02-11] MEDS: PANTOPRAZOLE SODIUM 40 MG/VIAL IV SCH ×2 (10:28→21:20)
[2020-02-11] MEDS: MULTIVITAMINS,THER W-MINERALS TABLET PO SCH (10:28)
[2020-02-11] MEDS: SODIUM HYPOCHLORITE (0.25%) 480ML SOLUTION (HALF STRENGTH) TOP SCH (10:28)
[2020-02-11] MEDS: ACETAMINOPHEN 650MG/20.3ML UDC NG PRN ×2 (11:02→20:28)
[2020-02-11 12:11] LABS: PLATELET ESTIMATE MARKEDLY DECREASED
[2020-02-12] VITALS (12 sets, daily range): BP systolic 119–136; BP diastolic 44–70
[2020-02-12] MEDS: IPRATROPIUM/ALBUTEROL 0.5-3(2.5)MG/3ML NEB HHN SCH ×4 (01:59→21:24)
[2020-02-12] MEDS: DEXTROSE 5% WATER 1,000 ML IV SCH ×2 (03:08→21:49)
[2020-02-12] MEDS: PHENYTOIN SODIUM 100MG/2ML VIAL IV SCH ×3 (05:22→21:48)
[2020-02-12 06:20] LABS: HEMOGLOBIN. 8.1 g/dL (12.0-16.0); MEAN CORPUSCULAR HEMOGLOBIN 30.3 pg (28.0-32.0); MEAN CORPUSCULAR VOLUME 90.1 fL (81.0-99.0); RED BLOOD CELL COUNT 2.67 mill/uL (4.2-5.4); RED CELL DISTRIBUTION WIDTH 17.3 % (11.6-14.6)
[2020-02-12 06:27] LABS: PLATELET 35 x1000/uL (130-400)
[2020-02-12 06:31] LABS: CHLORIDE 113 mEq/L (98-107)
[2020-02-12] MEDS: MULTIVITAMINS,THER W-MINERALS TABLET PO SCH (07:56)
[2020-02-12] MEDS: ACETAMINOPHEN 650MG/20.3ML UDC NG PRN (07:56)
[2020-02-12] MEDS: LEVETIRACETAM 500MG PREMIX 100 ML IV SCH ×2 (07:57→21:48)
[2020-02-12] MEDS: PANTOPRAZOLE SODIUM 40 MG/VIAL IV SCH ×2 (09:11→21:49)
[2020-02-12] MEDS: SODIUM HYPOCHLORITE (0.25%) 480ML SOLUTION (HALF STRENGTH) TOP SCH (09:12)
[2020-02-12 11:28] LABS: PLATELET ESTIMATE DECREASED
[2020-02-12] MEDS: PIPERACILLIN/TAZOBACTAM 3.375 G in DEXT 5% WATER 100 ML IV SCH ×2 (15:34→23:09)
[2020-02-13] VITALS (12 sets, daily range): BP systolic 105–139; BP diastolic 51–83
[2020-02-13] MEDS: IPRATROPIUM/ALBUTEROL 0.5-3(2.5)MG/3ML NEB HHN SCH ×4 (00:30→21:33)
[2020-02-13] MEDS: PIPERACILLIN/TAZOBACTAM 3.375 G in DEXT 5% WATER 100 ML IV SCH ×2 (05:25→13:28)
[2020-02-13] MEDS: PHENYTOIN SODIUM 100MG/2ML VIAL IV SCH ×3 (05:25→21:13)
[2020-02-13 06:33] LABS: HEMATOCRIT. 22.8 % (36.0-48.0); HEMOGLOBIN. 7.7 g/dL (12.0-16.0); MEAN CORPUSCULAR HEMOGLOBIN 30.6 pg (28.0-32.0); MEAN CORPUSCULAR VOLUME 90.7 fL (81.0-99.0); MEAN PLATELET VOLUME 10.8 fl (7.4-10.4); RED BLOOD CELL COUNT 2.51 mill/uL (4.2-5.4); RED CELL DISTRIBUTION WIDTH 17.3 % (11.6-14.6)
[2020-02-13 06:49] LABS: CHLORIDE 109 mEq/L (98-107)
[2020-02-13 08:01] LABS: PLATELET 39 x1000/uL (130-400)
[2020-02-13 08:33] LABS: ATYPICAL LYMPHOCYTES 1; NUCLEATED RED BLOOD CELLS 1 /100 WBC; PLATELET ESTIMATE MARKEDLY DECREASED
[2020-02-13] MEDS: PANTOPRAZOLE SODIUM 40 MG/VIAL IV SCH ×2 (09:19→20:18)
[2020-02-13] MEDS: MULTIVITAMINS,THER W-MINERALS TABLET PO SCH (09:19)
[2020-02-13] MEDS: SODIUM HYPOCHLORITE (0.25%) 480ML SOLUTION (HALF STRENGTH) TOP SCH (09:20)
[2020-02-13] MEDS: LEVETIRACETAM 500MG PREMIX 100 ML IV SCH ×2 (10:11→20:18)
[2020-02-13] MEDS: ACETAMINOPHEN 650MG/20.3ML UDC NG PRN (12:04)
[2020-02-13] MEDS: DEXTROSE 5% WATER 1,000 ML IV SCH (16:33)
[2020-02-14] VITALS (12 sets, daily range): BP systolic 109–138; BP diastolic 45–70
[2020-02-14] MEDS: IPRATROPIUM/ALBUTEROL 0.5-3(2.5)MG/3ML NEB HHN SCH ×3 (01:38→20:21)
[2020-02-14] MEDS: PHENYTOIN SODIUM 100MG/2ML VIAL IV SCH ×3 (05:23→22:00)
[2020-02-14 06:16] LABS: HEMATOCRIT. 22.3 % (36.0-48.0); HEMOGLOBIN. 7.4 g/dL (12.0-16.0); MEAN CORPUSCULAR HEMOGLOBIN 30.4 pg (28.0-32.0); MEAN CORPUSCULAR VOLUME 90.9 fL (81.0-99.0); MEAN PLATELET VOLUME 11.2 fl (7.4-10.4); RED BLOOD CELL COUNT 2.45 mill/uL (4.2-5.4); RED CELL DISTRIBUTION WIDTH 17.5 % (11.6-14.6)
[2020-02-14 06:24] LABS: PLATELET 47 x1000/uL (130-400)
[2020-02-14 06:45] LABS: CHLORIDE 107 mEq/L (98-107)
[2020-02-14 06:57] LABS: CREATINE KINASE 65 IU/L (26-192)
[2020-02-14] MEDS: MULTIVITAMINS,THER W-MINERALS TABLET PO SCH (09:13)
[2020-02-14] MEDS: PANTOPRAZOLE SODIUM 40 MG/VIAL IV SCH ×2 (09:13→21:00)
[2020-02-14] MEDS: SODIUM HYPOCHLORITE (0.25%) 480ML SOLUTION (HALF STRENGTH) TOP SCH (09:13)
[2020-02-14 10:56] LABS: NUCLEATED RED BLOOD CELLS 1 /100 WBC
[2020-02-14 10:57] LABS: PLATELET ESTIMATE MARKEDLY DECREASED
[2020-02-14] MEDS: LEVETIRACETAM 500MG PREMIX 100 ML IV SCH ×2 (11:15→21:00)
[2020-02-14] MEDS: DEXTROSE 5% WATER 1,000 ML IV SCH (15:22)
[2020-02-15] VITALS (16 sets, daily range): BP systolic 105–128; BP diastolic 39–69
[2020-02-15] MEDS: IPRATROPIUM/ALBUTEROL 0.5-3(2.5)MG/3ML NEB HHN SCH ×4 (02:17→20:34)
[2020-02-15] MEDS: PHENYTOIN SODIUM 100MG/2ML VIAL IV SCH ×3 (05:13→20:38)
[2020-02-15] MEDS: MULTIVITAMINS,THER W-MINERALS TABLET PO SCH (08:57)
[2020-02-15] MEDS: SODIUM HYPOCHLORITE (0.25%) 480ML SOLUTION (HALF STRENGTH) TOP SCH (09:00)
[2020-02-15 10:05] LABS: MEAN CORPUSCULAR HEMOGLOBIN 30.3 pg (28.0-32.0); MEAN CORPUSCULAR VOLUME 90.8 fL (81.0-99.0); PLATELET 54 x1000/uL (130-400); RED BLOOD CELL COUNT 2.27 mill/uL (4.2-5.4); RED CELL DISTRIBUTION WIDTH 17.3 % (11.6-14.6)
[2020-02-15 10:29] LABS: HEMATOCRIT 20.7 % (36.0-48.0); HEMOGLOBIN 6.9 g/dL (12.0-16.0)
[2020-02-15] MEDS ORDERED: SODIUM BICARBONATE 4% (2.4MEQ) 5ML VIAL IV ONE (12:30)
[2020-02-15] MEDS ORDERED: LIDOCAINE HCL 1% 20ML VIAL (Pyxis) INJ ONE (12:31)
[2020-02-15] MEDS: PANTOPRAZOLE SODIUM 40 MG/VIAL IV SCH ×2 (14:40→20:38)
[2020-02-15] MEDS: METOCLOPRAMIDE HCL 10MG/2ML VIAL IV SCH (14:54)
[2020-02-15] MEDS: DEXTROSE 5% WATER 1,000 ML IV SCH (14:55)
[2020-02-15] MEDS: LEVETIRACETAM 500MG PREMIX 100 ML IV SCH ×2 (14:55→20:38)
[2020-02-16] VITALS (12 sets, daily range): BP systolic 107–146; BP diastolic 41–86
[2020-02-16] MEDS: METOCLOPRAMIDE HCL 10MG/2ML VIAL IV SCH ×5 (00:16→23:06)
[2020-02-16] MEDS: IPRATROPIUM/ALBUTEROL 0.5-3(2.5)MG/3ML NEB HHN SCH ×4 (02:44→20:25)
[2020-02-16 05:09] LABS: CHLORIDE 107 mEq/L (98-107)
[2020-02-16] MEDS: PHENYTOIN SODIUM 100MG/2ML VIAL IV SCH ×3 (05:29→21:01)
[2020-02-16 05:46] LABS: HEMATOCRIT. 22.2 % (36.0-48.0); HEMOGLOBIN. 7.5 g/dL (12.0-16.0); MEAN CORPUSCULAR HEMOGLOBIN 30.7 pg (28.0-32.0); MEAN PLATELET VOLUME 10.5 fl (7.4-10.4); RED BLOOD CELL COUNT 2.44 mill/uL (4.2-5.4); RED CELL DISTRIBUTION WIDTH 16.9 % (11.6-14.6)
[2020-02-16 06:00] LABS: PLATELET 50 x1000/uL (130-400)
[2020-02-16] MEDS: PANTOPRAZOLE SODIUM 40 MG/VIAL IV SCH ×2 (08:42→20:55)
[2020-02-16] MEDS: MULTIVITAMINS,THER W-MINERALS TABLET PO SCH (08:42)
[2020-02-16] MEDS: LEVETIRACETAM 500MG PREMIX 100 ML IV SCH ×2 (08:43→20:55)
[2020-02-16] MEDS: SODIUM HYPOCHLORITE (0.25%) 480ML SOLUTION (HALF STRENGTH) TOP SCH (09:00)
[2020-02-16 11:18] LABS: NUCLEATED RED BLOOD CELLS 1 /100 WBC
[2020-02-16 11:19] LABS: PLATELET ESTIMATE MARKEDLY DECREASED
[2020-02-16] MEDS: DEXTROSE 5% WATER 1,000 ML IV SCH (11:40)
[2020-02-16] MEDS: ACETAMINOPHEN 650MG/20.3ML UDC NG PRN (11:41)
[2020-02-17] VITALS (19 sets, daily range): BP systolic 101–132; BP diastolic 46–72
[2020-02-17] MEDS: IPRATROPIUM/ALBUTEROL 0.5-3(2.5)MG/3ML NEB HHN SCH ×4 (02:04→21:14)
[2020-02-17] MEDS: DEXTROSE 5% WATER 1,000 ML IV SCH (05:33)
[2020-02-17] MEDS: METOCLOPRAMIDE HCL 10MG/2ML VIAL IV SCH ×4 (05:33→23:28)
[2020-02-17] MEDS: PHENYTOIN SODIUM 100MG/2ML VIAL IV SCH ×3 (05:35→21:04)
[2020-02-17 07:17] LABS: MEAN CORPUSCULAR HEMOGLOBIN 30.6 pg (28.0-32.0); MEAN CORPUSCULAR VOLUME 91.3 fL (81.0-99.0); MEAN PLATELET VOLUME 10.5 fl (7.4-10.4); PLATELET 51 x1000/uL (130-400); RED BLOOD CELL COUNT 2.02 mill/uL (4.2-5.4); RED CELL DISTRIBUTION WIDTH 16.8 % (11.6-14.6)
[2020-02-17 07:24] LABS: CHLORIDE 105 mEq/L (98-107)
[2020-02-17 08:00] LABS: HEMATOCRIT. 18.5 % (36.0-48.0); HEMOGLOBIN. 6.2 g/dL (12.0-16.0)
[2020-02-17] MEDS: PANTOPRAZOLE SODIUM 40 MG/VIAL IV SCH ×2 (09:12→21:04)
[2020-02-17] MEDS: MULTIVITAMINS,THER W-MINERALS TABLET PO SCH (09:12)
[2020-02-17] MEDS: LEVETIRACETAM 500MG PREMIX 100 ML IV SCH ×2 (09:13→21:04)
[2020-02-17] MEDS: SODIUM HYPOCHLORITE (0.25%) 480ML SOLUTION (HALF STRENGTH) TOP SCH (09:13)
[2020-02-17 10:43] LABS: PLATELET ESTIMATE MARKEDLY DECREASED
[2020-02-17] MEDS ORDERED: NA PHOS,M-B/NA PHOS,DI-BA ENEMA 118ML PR PRN (11:45)
[2020-02-17] MEDS ORDERED: DIATR MEGLU/DIATRIZOATE SOLN 30ML GT NR (11:45)
[2020-02-17] MEDS: SUCRALFATE 1 G/10 ML UDC PO SCH ×3 (12:31→23:28)
[2020-02-17] MEDS: ACETAMINOPHEN 650MG/20.3ML UDC NG PRN (14:02)
[2020-02-17] MEDS: DOCUSATE SODIUM SUGAR FREE 100MG/10ML UDC GT SCH (15:29)
[2020-02-17 17:29] LABS: HEMATOCRIT 21.6 % (36.0-48.0); HEMOGLOBIN 7.3 g/dL (12.0-16.0)
[2020-02-18] VITALS (17 sets, daily range): BP systolic 94–126; BP diastolic 41–64
[2020-02-18] MEDS: IPRATROPIUM/ALBUTEROL 0.5-3(2.5)MG/3ML NEB HHN SCH ×4 (03:25→21:15)
[2020-02-18] MEDS: DEXTROSE 5% WATER 1,000 ML IV SCH ×2 (03:30→17:27)
[2020-02-18] MEDS: SUCRALFATE 1 G/10 ML UDC PO SCH ×3 (05:00→17:27)
[2020-02-18] MEDS: METOCLOPRAMIDE HCL 10MG/2ML VIAL IV SCH ×3 (05:01→17:27)
[2020-02-18] MEDS: PHENYTOIN SODIUM 100MG/2ML VIAL IV SCH ×3 (05:01→21:33)
[2020-02-18 06:16] LABS: MEAN CORPUSCULAR HEMOGLOBIN 30.9 pg (28.0-32.0); MEAN CORPUSCULAR VOLUME 91.1 fL (81.0-99.0); RED CELL DISTRIBUTION WIDTH 16.3 % (11.6-14.6)
[2020-02-18 06:20] LABS: HEMOGLOBIN. 6.8 g/dL (12.0-16.0)
[2020-02-18 06:21] LABS: PLATELET 47 x1000/uL (130-400)
[2020-02-18 06:48] LABS: CHLORIDE 105 mEq/L (98-107)
[2020-02-18] MEDS: PANTOPRAZOLE SODIUM 40 MG/VIAL IV SCH ×2 (09:48→21:32)
[2020-02-18] MEDS: MULTIVITAMINS,THER W-MINERALS TABLET PO SCH (09:48)
[2020-02-18] MEDS: LEVETIRACETAM 500MG PREMIX 100 ML IV SCH ×2 (09:48→21:32)
[2020-02-18] MEDS: SODIUM HYPOCHLORITE (0.25%) 480ML SOLUTION (HALF STRENGTH) TOP SCH (09:48)
[2020-02-18 10:05] LABS: PLATELET ESTIMATE MARKEDLY DECREASED
[2020-02-18 13:42] LABS: TOTAL IRON BINDING CAPACITY 135 ug/dL (250-450)
[2020-02-18] MEDS: ACETAMINOPHEN 650MG/20.3ML UDC NG PRN (17:19)
[2020-02-18 17:59] LABS: FOLIC ACID (FOLATE) SERUM 9.5 ng/mL (>5.38)
[2020-02-19] VITALS (18 sets, daily range): BP systolic 95–136; BP diastolic 40–70
[2020-02-19] MEDS: SUCRALFATE 1 G/10 ML UDC PO SCH ×4 (01:03→18:05)
[2020-02-19] MEDS: METOCLOPRAMIDE HCL 10MG/2ML VIAL IV SCH ×4 (01:03→18:33)
[2020-02-19] MEDS: IPRATROPIUM/ALBUTEROL 0.5-3(2.5)MG/3ML NEB HHN SCH ×4 (02:02→20:53)
[2020-02-19] MEDS: PHENYTOIN SODIUM 100MG/2ML VIAL IV SCH ×3 (05:14→21:23)
[2020-02-19 07:31] LABS: HEMATOCRIT. 21.3 % (36.0-48.0); HEMOGLOBIN. 7.4 g/dL (12.0-16.0); MEAN CORPUSCULAR HEMOGLOBIN 30.9 pg (28.0-32.0); MEAN CORPUSCULAR VOLUME 89.5 fL (81.0-99.0); MEAN PLATELET VOLUME 10.4 fl (7.4-10.4); RED BLOOD CELL COUNT 2.38 mill/uL (4.2-5.4); RED CELL DISTRIBUTION WIDTH 17.2 % (11.6-14.6)
[2020-02-19 07:50] LABS: CHLORIDE 104 mEq/L (98-107)
[2020-02-19] MEDS: DOCUSATE SODIUM SUGAR FREE 100MG/10ML UDC GT SCH ×2 (09:00→09:13)
[2020-02-19] MEDS: LEVETIRACETAM 500MG PREMIX 100 ML IV SCH ×2 (09:13→21:23)
[2020-02-19] MEDS: MULTIVITAMINS,THER W-MINERALS TABLET PO SCH (09:13)
[2020-02-19] MEDS: PANTOPRAZOLE SODIUM 40 MG/VIAL IV SCH ×2 (09:13→21:23)
[2020-02-19] MEDS: SODIUM HYPOCHLORITE (0.25%) 480ML SOLUTION (HALF STRENGTH) TOP SCH (09:14)
[2020-02-19] MEDS: DEXTROSE 5% WATER 1,000 ML IV SCH (13:20)
[2020-02-19 14:27] LABS: PLATELET 43 x1000/uL (130-400); PLATELET ESTIMATE MARKEDLY DECREASED
[2020-02-20] VITALS (12 sets, daily range): BP systolic 100–135; BP diastolic 46–59
[2020-02-20] MEDS: SUCRALFATE 1 G/10 ML UDC PO SCH ×4 (00:26→17:42)
[2020-02-20] MEDS: METOCLOPRAMIDE HCL 10MG/2ML VIAL IV SCH ×4 (00:26→17:42)
[2020-02-20] MEDS: ACETAMINOPHEN 650MG/20.3ML UDC NG PRN (00:26)
[2020-02-20] MEDS: IPRATROPIUM/ALBUTEROL 0.5-3(2.5)MG/3ML NEB HHN SCH ×4 (01:49→20:32)
[2020-02-20] MEDS: PHENYTOIN SODIUM 100MG/2ML VIAL IV SCH ×3 (06:03→21:40)
[2020-02-20 07:58] LABS: HEMOGLOBIN. 7.3 g/dL (12.0-16.0); MEAN CORPUSCULAR VOLUME 89.2 fL (81.0-99.0); MEAN PLATELET VOLUME 10.4 fl (7.4-10.4); RED BLOOD CELL COUNT 2.34 mill/uL (4.2-5.4); RED CELL DISTRIBUTION WIDTH 16.6 % (11.6-14.6)
[2020-02-20 08:07] LABS: CHLORIDE 103 mEq/L (98-107)
[2020-02-20 08:25] LABS: HAPTOGLOBIN <31.0 mg/dL (30-200)
[2020-02-20 08:29] LABS: HEMATOCRIT. 20.9 % (36.0-48.0); PLATELET 35 x1000/uL (130-400)
[2020-02-20] MEDS: PANTOPRAZOLE SODIUM 40 MG/VIAL IV SCH ×2 (08:52→20:55)
[2020-02-20] MEDS: MULTIVITAMINS,THER W-MINERALS TABLET PO SCH (08:53)
[2020-02-20] MEDS: LEVETIRACETAM 500MG PREMIX 100 ML IV SCH ×2 (08:53→20:55)
[2020-02-20] MEDS: DOCUSATE SODIUM SUGAR FREE 100MG/10ML UDC GT SCH ×2 (08:58→09:00)
[2020-02-20] MEDS: SODIUM HYPOCHLORITE (0.25%) 480ML SOLUTION (HALF STRENGTH) TOP SCH (09:00)
[2020-02-20] MEDS: DEXTROSE 5% WATER 1,000 ML IV SCH (12:40)
[2020-02-21] VITALS (13 sets, daily range): BP systolic 101–115; BP diastolic 43–66
[2020-02-21] MEDS: METOCLOPRAMIDE HCL 10MG/2ML VIAL IV SCH ×4 (00:08→17:05)
[2020-02-21] MEDS: SUCRALFATE 1 G/10 ML UDC PO SCH ×4 (00:08→17:05)
[2020-02-21] MEDS: IPRATROPIUM/ALBUTEROL 0.5-3(2.5)MG/3ML NEB HHN SCH ×4 (02:02→20:46)
[2020-02-21] MEDS: PHENYTOIN SODIUM 100MG/2ML VIAL IV SCH ×3 (05:43→21:01)
[2020-02-21] MEDS: DEXTROSE 5% WATER 1,000 ML IV SCH (05:43)
[2020-02-21] MEDS: ACETAMINOPHEN 650MG/20.3ML UDC NG PRN ×2 (06:31→10:48)
[2020-02-21 07:55] LABS: BASOPHILS % 0.2 % (0.0-2.0); LYMPHOCYTES % 37.9 % (20.0-50.0); MEAN CORPUSCULAR HEMOGLOBIN 31.7 pg (28.0-32.0); MEAN CORPUSCULAR VOLUME 89.4 fL (81.0-99.0); MEAN PLATELET VOLUME 10.7 fl (7.4-10.4); MONOCYTES % 11.7 % (2.0-8.0); NEUTROPHILS % 50.2 % (40.0-76.0); RED BLOOD CELL COUNT 2.13 mill/uL (4.2-5.4); RED CELL DISTRIBUTION WIDTH 16.4 % (11.6-14.6)
[2020-02-21 08:06] LABS: CHLORIDE 102 mEq/L (98-107)
[2020-02-21 08:15] LABS: NUCLEATED RED BLOOD CELLS 1 /100 WBC
[2020-02-21 08:16] LABS: PLATELET ESTIMATE MARKEDLY DECREASED
[2020-02-21 08:19] LABS: HEMATOCRIT. 19.1 % (36.0-48.0); HEMOGLOBIN. 6.8 g/dL (12.0-16.0); PLATELET 33 x1000/uL (130-400)
[2020-02-21 10:06] LABS: IMMUNOGLOBULIN A 132 mg/dL (87-352); IMMUNOGLOBULIN G 1122 mg/dL (586-1602); IMMUNOGLOBULIN M 95 mg/dL (26-217)
[2020-02-21] MEDS: MULTIVITAMINS,THER W-MINERALS TABLET PO SCH (10:46)
[2020-02-21] MEDS: LEVETIRACETAM 500MG PREMIX 100 ML IV SCH ×2 (10:46→20:58)
[2020-02-21] MEDS: DOCUSATE SODIUM SUGAR FREE 100MG/10ML UDC GT SCH (10:47)
[2020-02-21] MEDS: PANTOPRAZOLE SODIUM 40 MG/VIAL IV SCH ×2 (10:47→20:59)
[2020-02-21] MEDS: SODIUM HYPOCHLORITE (0.25%) 480ML SOLUTION (HALF STRENGTH) TOP SCH (10:55)
[2020-02-21] MEDS: PREDNISONE 20MG TABLET PO SCH (20:59)
[2020-02-21] MEDS: CEFEPIME 1,000 MG in DEXTROSE 5% WATER 50 ML IV SCH (20:59)
[2020-02-21] MEDS: METRONIDAZOLE 500MG TABLET PO SCH (21:01)
[2020-02-22] VITALS (29 sets, daily range): BP systolic 108–149; BP diastolic 50–92
[2020-02-22] MEDS: SUCRALFATE 1 G/10 ML UDC PO SCH ×5 (00:17→23:11)
[2020-02-22] MEDS: METOCLOPRAMIDE HCL 10MG/2ML VIAL IV SCH ×5 (00:17→23:11)
[2020-02-22] MEDS: DEXTROSE 5% WATER 1,000 ML IV SCH ×2 (01:15→23:12)
[2020-02-22] MEDS: IPRATROPIUM/ALBUTEROL 0.5-3(2.5)MG/3ML NEB HHN SCH ×4 (01:28→20:46)
[2020-02-22] MEDS: PHENYTOIN SODIUM 100MG/2ML VIAL IV SCH ×3 (05:37→23:11)
[2020-02-22 06:38] LABS: MEAN CORPUSCULAR HEMOGLOBIN 30.6 pg (28.0-32.0); MEAN CORPUSCULAR VOLUME 88.4 fL (81.0-99.0); MEAN PLATELET VOLUME 10.2 fl (7.4-10.4); RED CELL DISTRIBUTION WIDTH 16.1 % (11.6-14.6)
[2020-02-22 06:54] LABS: HEMOGLOBIN. 6.7 g/dL (12.0-16.0)
[2020-02-22 06:55] LABS: HEMATOCRIT. 19.4 % (36.0-48.0)
[2020-02-22 06:56] LABS: PLATELET 39 x1000/uL (130-400)
[2020-02-22 07:00] LABS: CHLORIDE 105 mEq/L (98-107)
[2020-02-22 09:17] LABS: PLATELET ESTIMATE MARKEDLY DECREASED
[2020-02-22] MEDS: METRONIDAZOLE 500MG TABLET PO SCH ×2 (10:00→23:12)
[2020-02-22] MEDS: CEFEPIME 1,000 MG in DEXTROSE 5% WATER 50 ML IV SCH ×2 (10:12→23:10)
[2020-02-22] MEDS: MULTIVITAMINS,THER W-MINERALS TABLET PO SCH (10:13)
[2020-02-22] MEDS: PREDNISONE 20MG TABLET PO SCH ×4 (10:13→23:11)
[2020-02-22] MEDS: DOCUSATE SODIUM SUGAR FREE 100MG/10ML UDC GT SCH (10:13)
[2020-02-22] MEDS: LEVETIRACETAM 500MG PREMIX 100 ML IV SCH ×2 (10:14→23:11)
[2020-02-22] MEDS: SODIUM HYPOCHLORITE (0.25%) 480ML SOLUTION (HALF STRENGTH) TOP SCH (10:14)
[2020-02-22] MEDS: PANTOPRAZOLE SODIUM 40 MG/VIAL IV SCH ×2 (10:28→23:11)
[2020-02-22] MEDS: ZINC SULFATE 220 MG ( 50 ) CAPSULE PO SCH (18:09)
[2020-02-22] MEDS: ASCORBIC ACID 500 MG TABLET PO SCH (18:09)
[2020-02-23] VITALS (12 sets, daily range): BP systolic 107–140; BP diastolic 56–76
[2020-02-23 01:42] LABS: HEMATOCRIT 24.8 % (36.0-48.0); HEMOGLOBIN 8.6 g/dL (12.0-16.0)
[2020-02-23] MEDS: IPRATROPIUM/ALBUTEROL 0.5-3(2.5)MG/3ML NEB HHN SCH ×4 (02:15→20:30)
[2020-02-23 04:07] LABS: ANTI-NUCLEAR ANTIBODIES DIRECT Positive (Negative)
[2020-02-23] MEDS: SUCRALFATE 1 G/10 ML UDC PO SCH ×4 (05:24→23:54)
[2020-02-23] MEDS: PHENYTOIN SODIUM 100MG/2ML VIAL IV SCH ×3 (05:25→21:06)
[2020-02-23] MEDS: METOCLOPRAMIDE HCL 10MG/2ML VIAL IV SCH ×4 (05:25→23:54)
[2020-02-23] MEDS: CEFEPIME 1,000 MG in DEXTROSE 5% WATER 50 ML IV SCH ×2 (08:51→21:04)
[2020-02-23] MEDS: PREDNISONE 20MG TABLET PO SCH ×4 (08:52→21:15)
[2020-02-23] MEDS: PANTOPRAZOLE SODIUM 40 MG/VIAL IV SCH ×2 (08:52→21:05)
[2020-02-23] MEDS: ASCORBIC ACID 500 MG TABLET PO SCH (08:52)
[2020-02-23] MEDS: ZINC SULFATE 220 MG ( 50 ) CAPSULE PO SCH (08:52)
[2020-02-23] MEDS: METRONIDAZOLE 500MG TABLET PO SCH ×2 (08:52→21:06)
[2020-02-23] MEDS: LEVETIRACETAM 500MG PREMIX 100 ML IV SCH ×2 (08:52→21:04)
[2020-02-23] MEDS: DOCUSATE SODIUM SUGAR FREE 100MG/10ML UDC GT SCH (08:53)
[2020-02-23] MEDS: MULTIVITAMINS,THER W-MINERALS TABLET PO SCH (08:53)
[2020-02-23] MEDS: SODIUM HYPOCHLORITE (0.25%) 480ML SOLUTION (HALF STRENGTH) TOP SCH (09:07)
[2020-02-23] MEDS: DEXTROSE 5% WATER 1,000 ML IV SCH (17:31)
[2020-02-24] VITALS (13 sets, daily range): BP systolic 117–156; BP diastolic 56–75
[2020-02-24] MEDS: IPRATROPIUM/ALBUTEROL 0.5-3(2.5)MG/3ML NEB HHN SCH ×4 (02:28→20:54)
[2020-02-24] MEDS: METOCLOPRAMIDE HCL 10MG/2ML VIAL IV SCH ×3 (05:38→17:59)
[2020-02-24] MEDS: SUCRALFATE 1 G/10 ML UDC PO SCH ×3 (05:38→17:59)
[2020-02-24 06:23] LABS: BASOPHILS % 0.1 % (0.0-2.0); HEMATOCRIT. 24.9 % (36.0-48.0); HEMOGLOBIN. 8.5 g/dL (12.0-16.0); LYMPHOCYTES % 23.6 % (20.0-50.0); MEAN CORPUSCULAR HEMOGLOBIN 29.7 pg (28.0-32.0); MEAN CORPUSCULAR VOLUME 87.1 fL (81.0-99.0); MEAN PLATELET VOLUME 9.9 fl (7.4-10.4); MONOCYTES % 13.6 % (2.0-8.0); NEUTROPHILS % 62.7 % (40.0-76.0); PLATELET 54 x1000/uL (130-400); RED BLOOD CELL COUNT 2.85 mill/uL (4.2-5.4); RED CELL DISTRIBUTION WIDTH 16.2 % (11.6-14.6)
[2020-02-24 06:28] LABS: CHLORIDE 108 mEq/L (98-107)
[2020-02-24] MEDS: ASCORBIC ACID 500 MG TABLET PO SCH (09:37)
[2020-02-24] MEDS: METRONIDAZOLE 500MG TABLET PO SCH ×2 (09:37→21:43)
[2020-02-24] MEDS: ZINC SULFATE 220 MG ( 50 ) CAPSULE PO SCH (09:37)
[2020-02-24] MEDS: DOCUSATE SODIUM SUGAR FREE 100MG/10ML UDC GT SCH (09:37)
[2020-02-24] MEDS: MULTIVITAMINS,THER W-MINERALS TABLET PO SCH (09:37)
[2020-02-24] MEDS: PREDNISONE 20MG TABLET PO SCH ×4 (09:37→21:43)
[2020-02-24] MEDS: PANTOPRAZOLE SODIUM 40 MG/VIAL IV SCH ×2 (09:37→21:42)
[2020-02-24] MEDS: CEFEPIME 1,000 MG in DEXTROSE 5% WATER 50 ML IV SCH ×2 (09:38→21:43)
[2020-02-24] MEDS: LEVETIRACETAM 500MG PREMIX 100 ML IV SCH ×2 (09:46→21:42)
[2020-02-24] MEDS: SODIUM HYPOCHLORITE (0.25%) 480ML SOLUTION (HALF STRENGTH) TOP SCH (10:16)
[2020-02-24] MEDS: DEXTROSE 5% WATER 1,000 ML IV SCH (19:57)
[2020-02-25] VITALS (12 sets, daily range): BP systolic 107–156; BP diastolic 50–87
[2020-02-25] MEDS: SUCRALFATE 1 G/10 ML UDC PO SCH ×5 (00:58→23:44)
[2020-02-25] MEDS: METOCLOPRAMIDE HCL 10MG/2ML VIAL IV SCH ×5 (00:59→23:44)
[2020-02-25] MEDS: IPRATROPIUM/ALBUTEROL 0.5-3(2.5)MG/3ML NEB HHN SCH ×4 (02:38→21:57)
[2020-02-25 06:24] LABS: HEMATOCRIT. 25.8 % (36.0-48.0); HEMOGLOBIN. 8.9 g/dL (12.0-16.0); MEAN CORPUSCULAR HEMOGLOBIN 30.1 pg (28.0-32.0); MEAN CORPUSCULAR VOLUME 87.4 fL (81.0-99.0); MEAN PLATELET VOLUME 9.9 fl (7.4-10.4); PLATELET 55 x1000/uL (130-400); RED BLOOD CELL COUNT 2.95 mill/uL (4.2-5.4); RED CELL DISTRIBUTION WIDTH 16.1 % (11.6-14.6)
[2020-02-25 06:29] LABS: CHLORIDE 107 mEq/L (98-107)
[2020-02-25] MEDS: LEVETIRACETAM 500MG PREMIX 100 ML IV SCH ×2 (09:02→21:20)
[2020-02-25] MEDS: MULTIVITAMINS,THER W-MINERALS TABLET PO SCH (09:14)
[2020-02-25] MEDS: PANTOPRAZOLE SODIUM 40 MG/VIAL IV SCH ×2 (09:14→21:20)
[2020-02-25] MEDS: DOCUSATE SODIUM SUGAR FREE 100MG/10ML UDC GT SCH (09:14)
[2020-02-25] MEDS: CEFEPIME 1,000 MG in DEXTROSE 5% WATER 50 ML IV SCH ×2 (09:14→21:28)
[2020-02-25] MEDS: METRONIDAZOLE 500MG TABLET PO SCH ×2 (09:15→21:20)
[2020-02-25] MEDS: ASCORBIC ACID 500 MG TABLET PO SCH (09:15)
[2020-02-25] MEDS: PREDNISONE 20MG TABLET PO SCH ×4 (09:15→21:20)
[2020-02-25] MEDS: ZINC SULFATE 220 MG ( 50 ) CAPSULE PO SCH (09:15)
[2020-02-25] MEDS: SODIUM HYPOCHLORITE (0.25%) 480ML SOLUTION (HALF STRENGTH) TOP SCH (09:38)
[2020-02-25] MEDS: DEXTROSE 5% WATER 1,000 ML IV SCH (09:38)
[2020-02-25 11:22] LABS: PLATELET ESTIMATE MARKEDLY DECREASED
[2020-02-26] VITALS (12 sets, daily range): BP systolic 103–128; BP diastolic 49–64
[2020-02-26] MEDS: IPRATROPIUM/ALBUTEROL 0.5-3(2.5)MG/3ML NEB HHN SCH ×3 (02:01→20:50)
[2020-02-26] MEDS: SUCRALFATE 1 G/10 ML UDC PO SCH ×3 (06:07→17:01)
[2020-02-26] MEDS: METOCLOPRAMIDE HCL 10MG/2ML VIAL IV SCH ×3 (06:08→17:02)
[2020-02-26 06:51] LABS: HEMATOCRIT. 23.6 % (36.0-48.0); HEMOGLOBIN. 8.1 g/dL (12.0-16.0); MEAN CORPUSCULAR HEMOGLOBIN 30.1 pg (28.0-32.0); MEAN CORPUSCULAR VOLUME 87.3 fL (81.0-99.0); PLATELET 55 x1000/uL (130-400); RED BLOOD CELL COUNT 2.71 mill/uL (4.2-5.4); RED CELL DISTRIBUTION WIDTH 16.2 % (11.6-14.6)
[2020-02-26 06:57] LABS: CHLORIDE 105 mEq/L (98-107)
[2020-02-26] MEDS: METRONIDAZOLE 500MG TABLET PO SCH ×2 (08:11→22:03)
[2020-02-26] MEDS: ZINC SULFATE 220 MG ( 50 ) CAPSULE PO SCH (08:11)
[2020-02-26] MEDS: CEFEPIME 1,000 MG in DEXTROSE 5% WATER 50 ML IV SCH ×2 (08:11→22:03)
[2020-02-26] MEDS: PREDNISONE 20MG TABLET PO SCH ×4 (08:11→22:03)
[2020-02-26] MEDS: PANTOPRAZOLE SODIUM 40 MG/VIAL IV SCH ×2 (08:11→22:03)
[2020-02-26] MEDS: ASCORBIC ACID 500 MG TABLET PO SCH (08:11)
[2020-02-26] MEDS: MULTIVITAMINS,THER W-MINERALS TABLET PO SCH (08:11)
[2020-02-26] MEDS: DOCUSATE SODIUM SUGAR FREE 100MG/10ML UDC GT SCH (08:11)
[2020-02-26] MEDS: LEVETIRACETAM 500MG PREMIX 100 ML IV SCH ×2 (08:48→22:45)
[2020-02-26] MEDS: DEXTROSE 5% WATER 1,000 ML IV SCH (13:23)
[2020-02-26 14:27] LABS: PLATELET ESTIMATE DECREASED
[2020-02-26] MEDS: SODIUM HYPOCHLORITE (0.25%) 480ML SOLUTION (HALF STRENGTH) TOP SCH (16:39)
[2020-02-26] MEDS ORDERED: ACETAMINOPHEN 325MG TABLET GT PRN (18:00)
[2020-02-27] VITALS (12 sets, daily range): BP systolic 113–136; BP diastolic 48–67
[2020-02-27] MEDS: METOCLOPRAMIDE HCL 10MG/2ML VIAL IV SCH ×4 (00:13→17:01)
[2020-02-27] MEDS: SUCRALFATE 1 G/10 ML UDC PO SCH ×4 (00:13→17:01)
[2020-02-27] MEDS: IPRATROPIUM/ALBUTEROL 0.5-3(2.5)MG/3ML NEB HHN SCH ×4 (02:28→21:41)
[2020-02-27] MEDS: DEXTROSE 5% WATER 1,000 ML IV SCH ×2 (05:42→21:15)
[2020-02-27] MEDS: METRONIDAZOLE 500MG TABLET PO SCH ×2 (08:12→20:43)
[2020-02-27] MEDS: PREDNISONE 20MG TABLET PO SCH ×4 (08:12→20:43)
[2020-02-27] MEDS: ZINC SULFATE 220 MG ( 50 ) CAPSULE PO SCH (08:12)
[2020-02-27] MEDS: DOCUSATE SODIUM SUGAR FREE 100MG/10ML UDC GT SCH (08:12)
[2020-02-27] MEDS: ASCORBIC ACID 500 MG TABLET PO SCH (08:12)
[2020-02-27] MEDS: LEVETIRACETAM 500MG PREMIX 100 ML IV SCH ×2 (08:12→20:43)
[2020-02-27] MEDS: MULTIVITAMINS,THER W-MINERALS TABLET PO SCH (08:12)
[2020-02-27] MEDS: PANTOPRAZOLE SODIUM 40 MG/VIAL IV SCH ×2 (08:12→20:43)
[2020-02-27] MEDS: SODIUM HYPOCHLORITE (0.25%) 480ML SOLUTION (HALF STRENGTH) TOP SCH (08:13)
[2020-02-27 12:58] LABS: HEMATOCRIT 24.7 % (36.0-48.0); HEMOGLOBIN 8.3 g/dL (12.0-16.0); MEAN CORPUSCULAR HEMOGLOBIN 29.7 pg (28.0-32.0); PLATELET 52 x1000/uL (130-400)
[2020-02-28] VITALS (12 sets, daily range): BP systolic 120–146; BP diastolic 51–63
[2020-02-28] MEDS: METOCLOPRAMIDE HCL 10MG/2ML VIAL IV SCH ×4 (00:08→17:25)
[2020-02-28] MEDS: SUCRALFATE 1 G/10 ML UDC PO SCH ×4 (00:08→17:25)
[2020-02-28] MEDS: DEXTROSE 5% WATER 1,000 ML IV SCH (03:02)
[2020-02-28] MEDS: IPRATROPIUM/ALBUTEROL 0.5-3(2.5)MG/3ML NEB HHN SCH ×4 (03:14→20:21)
[2020-02-28 06:49] LABS: HEMATOCRIT. 23.9 % (36.0-48.0); HEMOGLOBIN. 8.1 g/dL (12.0-16.0); MEAN CORPUSCULAR HEMOGLOBIN 29.8 pg (28.0-32.0); MEAN CORPUSCULAR VOLUME 88.1 fL (81.0-99.0); MEAN PLATELET VOLUME 10.7 fl (7.4-10.4); PLATELET 51 x1000/uL (130-400); RED BLOOD CELL COUNT 2.71 mill/uL (4.2-5.4); RED CELL DISTRIBUTION WIDTH 15.9 % (11.6-14.6)
[2020-02-28 07:31] LABS: CHLORIDE 107 mEq/L (98-107)
[2020-02-28] MEDS: PREDNISONE 20MG TABLET PO SCH ×4 (08:48→21:48)
[2020-02-28] MEDS: METRONIDAZOLE 500MG TABLET PO SCH ×2 (08:48→21:48)
[2020-02-28] MEDS: PANTOPRAZOLE SODIUM 40 MG/VIAL IV SCH ×2 (08:48→21:48)
[2020-02-28] MEDS: DOCUSATE SODIUM SUGAR FREE 100MG/10ML UDC GT SCH (08:48)
[2020-02-28] MEDS: ASCORBIC ACID 500 MG TABLET PO SCH (08:48)
[2020-02-28] MEDS: LEVETIRACETAM 500MG PREMIX 100 ML IV SCH ×2 (08:48→21:48)
[2020-02-28] MEDS: MULTIVITAMINS,THER W-MINERALS TABLET PO SCH (08:48)
[2020-02-28] MEDS: ZINC SULFATE 220 MG ( 50 ) CAPSULE PO SCH (08:48)
[2020-02-28] MEDS: SODIUM HYPOCHLORITE (0.25%) 480ML SOLUTION (HALF STRENGTH) TOP SCH (08:49)
[2020-02-28 17:10] LABS: PLATELET ESTIMATE MARKEDLY DECREASED
[2020-02-29] VITALS (12 sets, daily range): BP systolic 113–125; BP diastolic 51–76
[2020-02-29] MEDS: METOCLOPRAMIDE HCL 10MG/2ML VIAL IV SCH ×5 (01:39→23:00)
[2020-02-29] MEDS: SUCRALFATE 1 G/10 ML UDC PO SCH ×5 (01:39→23:00)
[2020-02-29] MEDS: IPRATROPIUM/ALBUTEROL 0.5-3(2.5)MG/3ML NEB HHN SCH ×4 (02:00→20:46)
[2020-02-29 06:07] LABS: ANA IFA Negative (.)
[2020-02-29 06:54] LABS: HEMATOCRIT. 25.5 % (36.0-48.0); HEMOGLOBIN. 8.7 g/dL (12.0-16.0); MEAN CORPUSCULAR HEMOGLOBIN 29.7 pg (28.0-32.0); MEAN CORPUSCULAR VOLUME 87.4 fL (81.0-99.0); MEAN PLATELET VOLUME 10.6 fl (7.4-10.4); PLATELET 53 x1000/uL (130-400); RED BLOOD CELL COUNT 2.92 mill/uL (4.2-5.4); RED CELL DISTRIBUTION WIDTH 15.7 % (11.6-14.6)
[2020-02-29 07:49] LABS: CHLORIDE 106 mEq/L (98-107)
[2020-02-29] MEDS: PANTOPRAZOLE SODIUM 40 MG/VIAL IV SCH ×2 (09:18→20:03)
[2020-02-29] MEDS: DOCUSATE SODIUM SUGAR FREE 100MG/10ML UDC GT SCH (09:18)
[2020-02-29] MEDS: ASCORBIC ACID 500 MG TABLET PO SCH (09:18)
[2020-02-29] MEDS: LEVETIRACETAM 500MG PREMIX 100 ML IV SCH ×2 (09:18→20:03)
[2020-02-29] MEDS: ZINC SULFATE 220 MG ( 50 ) CAPSULE PO SCH (09:18)
[2020-02-29] MEDS: MULTIVITAMINS,THER W-MINERALS TABLET PO SCH (09:18)
[2020-02-29] MEDS: PREDNISONE 20MG TABLET PO SCH ×4 (09:18→20:04)
[2020-02-29] MEDS: SODIUM HYPOCHLORITE (0.25%) 480ML SOLUTION (HALF STRENGTH) TOP SCH (09:19)
[2020-02-29] MEDS: DEXTROSE 5% WATER 1,000 ML IV SCH ×2 (12:40→12:52)
[2020-02-29 14:10] LABS: NUCLEATED RED BLOOD CELLS 3 /100 WBC
[2020-02-29 14:12] LABS: PLATELET ESTIMATE MARKEDLY DECREASED
[2020-02-29] MEDS: METRONIDAZOLE 500MG TABLET PO SCH ×2 (16:06→22:07)
[2020-03-01] VITALS (12 sets, daily range): BP systolic 107–145; BP diastolic 48–68
[2020-03-01] MEDS: IPRATROPIUM/ALBUTEROL 0.5-3(2.5)MG/3ML NEB HHN SCH ×4 (02:40→20:42)
[2020-03-01] MEDS: METRONIDAZOLE 500MG TABLET PO SCH ×3 (05:13→21:26)
[2020-03-01] MEDS: SUCRALFATE 1 G/10 ML UDC PO SCH ×3 (05:13→18:48)
[2020-03-01] MEDS: METOCLOPRAMIDE HCL 10MG/2ML VIAL IV SCH ×3 (05:13→18:48)
[2020-03-01 07:14] LABS: HEMATOCRIT. 25.6 % (36.0-48.0); HEMOGLOBIN. 8.7 g/dL (12.0-16.0); MEAN CORPUSCULAR HEMOGLOBIN 30.2 pg (28.0-32.0); MEAN CORPUSCULAR VOLUME 89.2 fL (81.0-99.0); MEAN PLATELET VOLUME 10.8 fl (7.4-10.4); PLATELET 51 x1000/uL (130-400); RED BLOOD CELL COUNT 2.87 mill/uL (4.2-5.4); RED CELL DISTRIBUTION WIDTH 15.9 % (11.6-14.6)
[2020-03-01 07:20] LABS: CHLORIDE 108 mEq/L (98-107)
[2020-03-01] MEDS: DOCUSATE SODIUM SUGAR FREE 100MG/10ML UDC GT SCH (09:20)
[2020-03-01] MEDS: PANTOPRAZOLE SODIUM 40 MG/VIAL IV SCH ×2 (09:20→21:50)
[2020-03-01] MEDS: PREDNISONE 20MG TABLET PO SCH ×4 (09:20→21:26)
[2020-03-01] MEDS: MULTIVITAMINS,THER W-MINERALS TABLET PO SCH (09:20)
[2020-03-01] MEDS: ZINC SULFATE 220 MG ( 50 ) CAPSULE PO SCH (09:20)
[2020-03-01] MEDS: ASCORBIC ACID 500 MG TABLET PO SCH (09:20)
[2020-03-01] MEDS: SODIUM HYPOCHLORITE (0.25%) 480ML SOLUTION (HALF STRENGTH) TOP SCH (09:21)
[2020-03-01] MEDS: LEVETIRACETAM 500MG PREMIX 100 ML IV SCH ×2 (09:28→21:26)
[2020-03-01] MEDS: DEXTROSE 5% WATER 1,000 ML IV SCH (09:29)
[2020-03-01 09:32] LABS: NUCLEATED RED BLOOD CELLS 1 /100 WBC
[2020-03-01 09:33] LABS: PLATELET ESTIMATE MARKEDLY DECREASED
[2020-03-02] VITALS (12 sets, daily range): BP systolic 117–143; BP diastolic 50–73
[2020-03-02] MEDS: METOCLOPRAMIDE HCL 10MG/2ML VIAL IV SCH ×5 (00:05→23:09)
[2020-03-02] MEDS: SUCRALFATE 1 G/10 ML UDC PO SCH ×5 (00:05→23:09)
[2020-03-02] MEDS: IPRATROPIUM/ALBUTEROL 0.5-3(2.5)MG/3ML NEB HHN SCH ×4 (01:38→21:13)
[2020-03-02] MEDS: DEXTROSE 5% WATER 1,000 ML IV SCH ×2 (05:14→23:09)
[2020-03-02] MEDS: METRONIDAZOLE 500MG TABLET PO SCH ×3 (05:15→20:57)
[2020-03-02] MEDS: ASCORBIC ACID 500 MG TABLET PO SCH (08:44)
[2020-03-02] MEDS: MULTIVITAMINS,THER W-MINERALS TABLET PO SCH (08:44)
[2020-03-02] MEDS: DOCUSATE SODIUM SUGAR FREE 100MG/10ML UDC GT SCH (08:44)
[2020-03-02] MEDS: ZINC SULFATE 220 MG ( 50 ) CAPSULE PO SCH (08:44)
[2020-03-02] MEDS: PANTOPRAZOLE SODIUM 40 MG/VIAL IV SCH ×2 (08:45→20:57)
[2020-03-02] MEDS: PREDNISONE 20MG TABLET PO SCH ×4 (08:45→20:57)
[2020-03-02] MEDS: LEVETIRACETAM 500MG PREMIX 100 ML IV SCH ×2 (08:46→20:57)
[2020-03-02] MEDS: SODIUM HYPOCHLORITE (0.25%) 480ML SOLUTION (HALF STRENGTH) TOP SCH (08:47)
[2020-03-02] MEDS ORDERED: ACETAMINOPHEN 650MG/20.3ML UDC GT PRN (16:45)
[2020-03-03] VITALS (12 sets, daily range): BP systolic 106–137; BP diastolic 49–58
[2020-03-03] MEDS: IPRATROPIUM/ALBUTEROL 0.5-3(2.5)MG/3ML NEB HHN SCH ×3 (02:16→22:02)
[2020-03-03] MEDS: SUCRALFATE 1 G/10 ML UDC PO SCH ×3 (05:24→17:06)
[2020-03-03] MEDS: METOCLOPRAMIDE HCL 10MG/2ML VIAL IV SCH ×3 (05:24→17:06)
[2020-03-03] MEDS: METRONIDAZOLE 500MG TABLET PO SCH ×3 (05:24→20:37)
[2020-03-03 05:50] LABS: HEMATOCRIT. 22.6 % (36.0-48.0); HEMOGLOBIN. 7.6 g/dL (12.0-16.0); MEAN CORPUSCULAR HEMOGLOBIN 30.4 pg (28.0-32.0); MEAN CORPUSCULAR VOLUME 90.3 fL (81.0-99.0); MEAN PLATELET VOLUME 10.2 fl (7.4-10.4); RED BLOOD CELL COUNT 2.51 mill/uL (4.2-5.4); RED CELL DISTRIBUTION WIDTH 16.9 % (11.6-14.6)
[2020-03-03 06:01] LABS: CHLORIDE 106 mEq/L (98-107)
[2020-03-03 07:01] LABS: PLATELET 49 x1000/uL (130-400)
[2020-03-03] MEDS: MULTIVITAMINS,THER W-MINERALS TABLET PO SCH (08:56)
[2020-03-03] MEDS: ZINC SULFATE 220 MG ( 50 ) CAPSULE PO SCH (08:56)
[2020-03-03] MEDS: PANTOPRAZOLE SODIUM 40 MG/VIAL IV SCH ×2 (08:56→20:37)
[2020-03-03] MEDS: PREDNISONE 20MG TABLET PO SCH ×4 (08:56→20:37)
[2020-03-03] MEDS: LEVETIRACETAM 500MG PREMIX 100 ML IV SCH ×2 (08:56→20:37)
[2020-03-03] MEDS: DOCUSATE SODIUM SUGAR FREE 100MG/10ML UDC GT SCH (08:56)
[2020-03-03] MEDS: ASCORBIC ACID 500 MG TABLET PO SCH (08:57)
[2020-03-03] MEDS: SODIUM HYPOCHLORITE (0.25%) 480ML SOLUTION (HALF STRENGTH) TOP SCH (08:57)
[2020-03-03 10:47] LABS: ATYPICAL LYMPHOCYTES 1; NUCLEATED RED BLOOD CELLS 1 /100 WBC; PLATELET ESTIMATE MARKEDLY DECREASED
[2020-03-03] MEDS: DEXTROSE 5% WATER 1,000 ML IV SCH (20:37)
[2020-03-04] VITALS (12 sets, daily range): BP systolic 111–140; BP diastolic 46–58
[2020-03-04] MEDS: METOCLOPRAMIDE HCL 10MG/2ML VIAL IV SCH ×4 (00:51→17:39)
[2020-03-04] MEDS: SUCRALFATE 1 G/10 ML UDC PO SCH ×4 (00:52→17:39)
[2020-03-04] MEDS: IPRATROPIUM/ALBUTEROL 0.5-3(2.5)MG/3ML NEB HHN SCH ×3 (01:10→14:25)
[2020-03-04] MEDS: METRONIDAZOLE 500MG TABLET PO SCH ×3 (06:08→20:39)
[2020-03-04] MEDS: DOCUSATE SODIUM SUGAR FREE 100MG/10ML UDC GT SCH (08:56)
[2020-03-04] MEDS: SODIUM HYPOCHLORITE (0.25%) 480ML SOLUTION (HALF STRENGTH) TOP SCH (08:57)
[2020-03-04] MEDS: LEVETIRACETAM 500MG PREMIX 100 ML IV SCH ×2 (08:57→20:38)
[2020-03-04] MEDS: ZINC SULFATE 220 MG ( 50 ) CAPSULE PO SCH (08:57)
[2020-03-04] MEDS: PREDNISONE 20MG TABLET PO SCH ×4 (08:57→20:38)
[2020-03-04] MEDS: ASCORBIC ACID 500 MG TABLET PO SCH (08:57)
[2020-03-05] VITALS (12 sets, daily range): BP systolic 109–130; BP diastolic 38–71
[2020-03-05] MEDS: METOCLOPRAMIDE HCL 10MG/2ML VIAL IV SCH ×4 (00:32→17:57)
[2020-03-05] MEDS: SUCRALFATE 1 G/10 ML UDC PO SCH ×4 (00:33→17:58)
[2020-03-05] MEDS: METRONIDAZOLE 500MG TABLET PO SCH ×3 (05:51→21:23)
[2020-03-05 07:52] LABS: HEMATOCRIT. 22.4 % (36.0-48.0); HEMOGLOBIN. 7.5 g/dL (12.0-16.0); MEAN CORPUSCULAR HEMOGLOBIN 30.5 pg (28.0-32.0); MEAN CORPUSCULAR VOLUME 90.9 fL (81.0-99.0); PLATELET 55 x1000/uL (130-400); RED BLOOD CELL COUNT 2.46 mill/uL (4.2-5.4)
[2020-03-05 08:00] LABS: CHLORIDE 108 mEq/L (98-107)
[2020-03-05] MEDS: DOCUSATE SODIUM SUGAR FREE 100MG/10ML UDC GT SCH (09:20)
[2020-03-05] MEDS: ZINC SULFATE 220 MG ( 50 ) CAPSULE PO SCH (09:21)
[2020-03-05] MEDS: ASCORBIC ACID 500 MG TABLET PO SCH (09:21)
[2020-03-05] MEDS: PREDNISONE 20MG TABLET PO SCH ×4 (09:21→21:23)
[2020-03-05] MEDS: LEVETIRACETAM 500MG PREMIX 100 ML IV SCH ×2 (09:21→21:23)
[2020-03-05 09:22] LABS: PLATELET ESTIMATE DECREASED
[2020-03-05] MEDS: SODIUM HYPOCHLORITE (0.25%) 480ML SOLUTION (HALF STRENGTH) TOP SCH (09:22)
[2020-03-06] VITALS (13 sets, daily range): BP systolic 107–135; BP diastolic 51–61
[2020-03-06] MEDS: METOCLOPRAMIDE HCL 10MG/2ML VIAL IV SCH ×4 (00:26→18:31)
[2020-03-06] MEDS: SUCRALFATE 1 G/10 ML UDC PO SCH ×4 (00:26→18:31)
[2020-03-06] MEDS: METRONIDAZOLE 500MG TABLET PO SCH ×3 (06:21→21:12)
[2020-03-06] MEDS: PREDNISONE 20MG TABLET PO SCH ×4 (09:24→21:11)
[2020-03-06] MEDS: ZINC SULFATE 220 MG ( 50 ) CAPSULE PO SCH (09:24)
[2020-03-06] MEDS: ASCORBIC ACID 500 MG TABLET PO SCH (09:24)
[2020-03-06] MEDS: SODIUM HYPOCHLORITE (0.25%) 480ML SOLUTION (HALF STRENGTH) TOP SCH (09:24)
[2020-03-06] MEDS: DOCUSATE SODIUM SUGAR FREE 100MG/10ML UDC GT SCH (09:36)
[2020-03-06] MEDS: LEVETIRACETAM 500MG PREMIX 100 ML IV SCH ×2 (09:36→21:12)
[2020-03-07] VITALS (13 sets, daily range): BP systolic 128–148; BP diastolic 55–76
[2020-03-07] MEDS: METOCLOPRAMIDE HCL 10MG/2ML VIAL IV SCH ×4 (00:41→17:12)
[2020-03-07] MEDS: SUCRALFATE 1 G/10 ML UDC PO SCH ×4 (00:41→17:12)
[2020-03-07] MEDS: METRONIDAZOLE 500MG TABLET PO SCH ×3 (05:41→21:53)
[2020-03-07 05:59] LABS: HEMATOCRIT. 24.4 % (36.0-48.0); HEMOGLOBIN. 8.3 g/dL (12.0-16.0); MEAN CORPUSCULAR VOLUME 90.8 fL (81.0-99.0); MEAN PLATELET VOLUME 9.9 fl (7.4-10.4); PLATELET 64 x1000/uL (130-400); RED BLOOD CELL COUNT 2.69 mill/uL (4.2-5.4); RED CELL DISTRIBUTION WIDTH 17.7 % (11.6-14.6)
[2020-03-07 06:09] LABS: CHLORIDE 106 mEq/L (98-107)
[2020-03-07] MEDS: DOCUSATE SODIUM SUGAR FREE 100MG/10ML UDC GT SCH (08:32)
[2020-03-07] MEDS: PREDNISONE 20MG TABLET PO SCH ×4 (08:32→21:53)
[2020-03-07] MEDS: LEVETIRACETAM 500MG PREMIX 100 ML IV SCH ×2 (08:32→21:53)
[2020-03-07] MEDS: ZINC SULFATE 220 MG ( 50 ) CAPSULE PO SCH (08:32)
[2020-03-07] MEDS: ASCORBIC ACID 500 MG TABLET PO SCH (08:32)
[2020-03-07] MEDS: SODIUM HYPOCHLORITE (0.25%) 480ML SOLUTION (HALF STRENGTH) TOP SCH (12:23)
[2020-03-07] MEDS ORDERED: DOCUSATE SODIUM SUGAR FREE 100MG/10ML UDC NG PRN (12:30)
[2020-03-07 13:14] LABS: NUCLEATED RED BLOOD CELLS 3 /100 WBC; PLATELET ESTIMATE DECREASED
[2020-03-08] VITALS (15 sets, daily range): BP systolic 109–145; BP diastolic 48–70
[2020-03-08] MEDS: METOCLOPRAMIDE HCL 10MG/2ML VIAL IV SCH ×4 (00:33→17:38)
[2020-03-08] MEDS: SUCRALFATE 1 G/10 ML UDC PO SCH ×4 (00:33→17:38)
[2020-03-08] MEDS: SODIUM HYPOCHLORITE (0.25%) 480ML SOLUTION (HALF STRENGTH) TOP SCH (08:38)
[2020-03-08] MEDS: DOCUSATE SODIUM SUGAR FREE 100MG/10ML UDC GT SCH (08:38)
[2020-03-08] MEDS: PREDNISONE 20MG TABLET PO SCH ×4 (08:38→21:04)
[2020-03-08] MEDS: LEVETIRACETAM 500MG PREMIX 100 ML IV SCH ×2 (08:38→21:03)
[2020-03-08] MEDS: ASCORBIC ACID 500 MG TABLET PO SCH (08:38)
[2020-03-08] MEDS: ZINC SULFATE 220 MG ( 50 ) CAPSULE PO SCH (08:38)
[2020-03-09] VITALS (12 sets, daily range): BP systolic 107–137; BP diastolic 52–69
[2020-03-09] MEDS: METOCLOPRAMIDE HCL 10MG/2ML VIAL IV SCH ×5 (00:06→23:26)
[2020-03-09] MEDS: SUCRALFATE 1 G/10 ML UDC PO SCH ×5 (00:07→23:26)
[2020-03-09] MEDS: DOCUSATE SODIUM SUGAR FREE 100MG/10ML UDC GT SCH (08:27)
[2020-03-09] MEDS: ZINC SULFATE 220 MG ( 50 ) CAPSULE PO SCH (08:27)
[2020-03-09] MEDS: ASCORBIC ACID 500 MG TABLET PO SCH (08:27)
[2020-03-09] MEDS: PREDNISONE 20MG TABLET PO SCH ×4 (08:27→20:43)
[2020-03-09] MEDS: SODIUM HYPOCHLORITE (0.25%) 480ML SOLUTION (HALF STRENGTH) TOP SCH (08:28)
[2020-03-09] MEDS: LEVETIRACETAM 500MG PREMIX 100 ML IV SCH ×2 (08:28→20:43)
[2020-03-10] VITALS (11 sets, daily range): BP systolic 106–130; BP diastolic 43–74
[2020-03-10] MEDS: METOCLOPRAMIDE HCL 10MG/2ML VIAL IV SCH ×4 (05:55→23:00)
[2020-03-10] MEDS: SUCRALFATE 1 G/10 ML UDC PO SCH ×4 (05:55→23:00)
[2020-03-10 06:11] LABS: CHLORIDE 106 mEq/L (98-107)
[2020-03-10 06:14] LABS: HEMATOCRIT. 22.8 % (36.0-48.0); HEMOGLOBIN. 7.5 g/dL (12.0-16.0); MEAN CORPUSCULAR HEMOGLOBIN 30.9 pg (28.0-32.0); MEAN CORPUSCULAR VOLUME 94.4 fL (81.0-99.0); MEAN PLATELET VOLUME 10.2 fl (7.4-10.4); PLATELET 60 x1000/uL (130-400); RED BLOOD CELL COUNT 2.42 mill/uL (4.2-5.4); RED CELL DISTRIBUTION WIDTH 19.4 % (11.6-14.6)
[2020-03-10] MEDS: PREDNISONE 20MG TABLET PO SCH ×4 (08:18→20:35)
[2020-03-10] MEDS: LEVETIRACETAM 500MG PREMIX 100 ML IV SCH ×2 (08:18→20:35)
[2020-03-10] MEDS: ZINC SULFATE 220 MG ( 50 ) CAPSULE PO SCH (08:19)
[2020-03-10] MEDS: ASCORBIC ACID 500 MG TABLET PO SCH (08:19)
[2020-03-10] MEDS: DOCUSATE SODIUM SUGAR FREE 100MG/10ML UDC GT SCH (08:20)
[2020-03-10] MEDS: SODIUM HYPOCHLORITE (0.25%) 480ML SOLUTION (HALF STRENGTH) TOP SCH (08:21)
[2020-03-10 14:01] LABS: PLATELET ESTIMATE DECREASED
[2020-03-11] VITALS (11 sets, daily range): BP systolic 96–145; BP diastolic 47–66
[2020-03-11] MEDS: SUCRALFATE 1 G/10 ML UDC PO SCH ×4 (05:03→23:08)
[2020-03-11] MEDS: METOCLOPRAMIDE HCL 10MG/2ML VIAL IV SCH ×4 (05:03→23:08)
[2020-03-11] MEDS: ZINC SULFATE 220 MG ( 50 ) CAPSULE PO SCH (09:08)
[2020-03-11] MEDS: LEVETIRACETAM 500MG PREMIX 100 ML IV SCH ×2 (09:08→20:53)
[2020-03-11] MEDS: PREDNISONE 20MG TABLET PO SCH ×4 (09:08→20:53)
[2020-03-11] MEDS: ASCORBIC ACID 500 MG TABLET PO SCH (09:08)
[2020-03-11] MEDS: DOCUSATE SODIUM SUGAR FREE 100MG/10ML UDC GT SCH (09:08)
[2020-03-12] VITALS (12 sets, daily range): BP systolic 103–127; BP diastolic 50–61
[2020-03-12] MEDS: SUCRALFATE 1 G/10 ML UDC PO SCH ×4 (05:04→23:59)
[2020-03-12] MEDS: METOCLOPRAMIDE HCL 10MG/2ML VIAL IV SCH ×4 (05:04→23:59)
[2020-03-12] MEDS: DOCUSATE SODIUM SUGAR FREE 100MG/10ML UDC GT SCH (09:19)
[2020-03-12] MEDS: ASCORBIC ACID 500 MG TABLET PO SCH (09:19)
[2020-03-12] MEDS: LEVETIRACETAM 500MG PREMIX 100 ML IV SCH ×2 (09:19→21:11)
[2020-03-12] MEDS: ZINC SULFATE 220 MG ( 50 ) CAPSULE PO SCH (09:19)
[2020-03-12] MEDS: PREDNISONE 20MG TABLET PO SCH ×4 (09:19→21:11)
[2020-03-13] VITALS (10 sets, daily range): BP systolic 107–124; BP diastolic 53–77
[2020-03-13] MEDS: SUCRALFATE 1 G/10 ML UDC PO SCH ×2 (05:07→13:27)
[2020-03-13] MEDS: METOCLOPRAMIDE HCL 10MG/2ML VIAL IV SCH ×2 (05:07→13:27)
[2020-03-13] MEDS: ZINC SULFATE 220 MG ( 50 ) CAPSULE PO SCH (08:42)
[2020-03-13] MEDS: PREDNISONE 20MG TABLET PO SCH ×2 (08:42→13:27)
[2020-03-13] MEDS: DOCUSATE SODIUM SUGAR FREE 100MG/10ML UDC GT SCH (08:42)
[2020-03-13] MEDS: LEVETIRACETAM 500MG PREMIX 100 ML IV SCH (08:42)
[2020-03-13] MEDS: ASCORBIC ACID 500 MG TABLET PO SCH (08:42)
[2020-03-13 10:45] LABS: HEMATOCRIT 25.4 % (36.0-48.0); HEMOGLOBIN 8.5 g/dL (12.0-16.0); MEAN CORPUSCULAR HEMOGLOBIN 32.4 pg (28.0-32.0); MEAN CORPUSCULAR VOLUME 96.8 fL (81.0-99.0); RED BLOOD CELL COUNT 2.63 mill/uL (4.2-5.4); RED CELL DISTRIBUTION WIDTH 23.8 % (11.6-14.6)
[2020-03-13 11:02] LABS: PLATELET 44 x1000/uL (130-400)
[2020-03-13 11:18] LABS: CHLORIDE 106 mEq/L (98-107)
[2020-03-13] MEDS ORDERED: METOCLOPRAMIDE 10MG/10 ML UDC PO SCH (18:00)
== END 2020-03-13 16:30 | DRG 4 ==
LOC: ER 09:21 → 5EST 11:34 → ENRESERV 11:58 → 5EST 02-10 21:50
PROVIDERS: ADMIT Internal Medicine; ATTEND Internal Medicine
PROC: 00B70ZZ Excision of Cerebral Hemisphere, Open Approach (ICD-10-PCS; principal; 2020-01-26)
PROC: 00C70ZZ Extirpation of Matter from Cerebral Hemisphere, Open Approach (ICD-10-PCS; 2020-01-26)
PROC: 00H002Z Insertion of Monitoring Device into Brain, Open Approach (ICD-10-PCS; 2020-01-26)
PROC: 4A107BD Monitoring of Intracranial Pressure, Via Natural or Artificial Opening (ICD-10-PCS; 2020-01-26)
PROC: 5A1955Z Respiratory Ventilation, Greater than 96 Consecutive Hours (ICD-10-PCS; 2020-01-26)
PROC: 00C40ZZ Extirpation of Matter from Intracranial Subdural Space, Open Approach (ICD-10-PCS; 2020-01-26)
PROC: 00U207Z Supplement Dura Mater with Autologous Tissue Substitute, Open Approach (ICD-10-PCS; 2020-01-26)
PROC: 0NR00JZ Replacement of Skull with Synthetic Substitute, Open Approach (ICD-10-PCS; 2020-01-26)
PROC: 30233K1 Transfusion of Nonautologous Frozen Plasma into Peripheral Vein, Percutaneous Approach (ICD-10-PCS; 2020-01-26)
PROC: 0BH17EZ Insertion of Endotracheal Airway into Trachea, Via Natural or Artificial Opening (ICD-10-PCS; 2020-01-26)
PROC: 05HY33Z Insertion of Infusion Device into Upper Vein, Percutaneous Approach (ICD-10-PCS; 2020-01-28)
PROC: 0B110F4 Bypass Trachea to Cutaneous with Tracheostomy Device, Open Approach (ICD-10-PCS; 2020-02-07)
PROC: 0GBJ0ZZ Excision of Thyroid Gland Isthmus, Open Approach (ICD-10-PCS; 2020-02-07)
PROC: 30233R1 Transfusion of Nonautologous Platelets into Peripheral Vein, Percutaneous Approach (ICD-10-PCS; 2020-02-08)
PROC: 0DH63UZ Insertion of Feeding Device into Stomach, Percutaneous Approach (ICD-10-PCS; 2020-02-09)
PROC: 30233N1 Transfusion of Nonautologous Red Blood Cells into Peripheral Vein, Percutaneous Approach (ICD-10-PCS; 2020-02-09)
PROC: 02H633Z Insertion of Infusion Device into Right Atrium, Percutaneous Approach (ICD-10-PCS; 2020-02-15)
PROC: B548ZZA Ultrasonography of Superior Vena Cava, Guidance (ICD-10-PCS; 2020-02-15)
DX: I61.9 Nontraumatic intracerebral hemorrhage, unspecified (principal); I63.512 Cerebral infarction due to unspecified occlusion or stenosis of left middle cerebral artery; G93.6 Cerebral edema; E43 Unspecified severe protein-calorie malnutrition; D61.818 Other pancytopenia; D69.3 Immune thrombocytopenic purpura; R78.81 Bacteremia; G93.49 Other encephalopathy; J96.00 Acute respiratory failure, unspecified whether with hypoxia or hypercapnia; Z99.11 Dependence on respirator [ventilator] status; I82.C12 Acute embolism and thrombosis of left internal jugular vein; E66.01 Morbid (severe) obesity due to excess calories; D68.9 Coagulation defect, unspecified; I83.019 Varicose veins of right lower extremity with ulcer of unspecified site; I62.01 Nontraumatic acute subdural hemorrhage; D64.9 Anemia, unspecified; L97.919 Non-pressure chronic ulcer of unspecified part of right lower leg with unspecified severity; E87.6 Hypokalemia; E87.0 Hyperosmolality and hypernatremia; I62.00 Nontraumatic subdural hemorrhage, unspecified; E87.1 Hypo-osmolality and hyponatremia; K56.41 Fecal impaction; E83.52 Hypercalcemia; R00.1 Bradycardia, unspecified; R13.12 Dysphagia, oropharyngeal phase; E11.22 Type 2 diabetes mellitus with diabetic chronic kidney disease; I12.9 Hypertensive chronic kidney disease with stage 1 through stage 4 chronic kidney disease, or unspecified chronic kidney disease; N18.9 Chronic kidney disease, unspecified; Z20.828 Contact with and (suspected) exposure to other viral communicable diseases; X58.XXXA Exposure to other specified factors, initial encounter; Z68.39 Body mass index [BMI] 39.0-39.9, adult; Z78.1 Physical restraint status; Z43.1 Encounter for attention to gastrostomy
CPT/HCPCS: 36415; 36600; 70496; 70498; 71045; 74018; 76700; 76937; 80048; 80053; 80076; 80185; 80305; 80320; 81003; 82248; 82270; 82375; 82550; 82607; 82728; 82746; 82784; 82805; 82962; 83010; 83540; 83550; 83615; 83721; 84132; 84443; 84484; 85014; 85018; 85025; 85027; 85049; 86038; 86256; 86334; 86803; 86850; 86880; 86900; 86920; 86927; 86945; 87070; 87077; 87635; 88304; 93005; 93971; 94002; 94003; 94640; 99291; C1713; C1725; C1758; C9113; C9132; J0690; J0692; J1100; J1165; J1200; J1953; J2250; J2270; J2370; J2543; J2704; J2765; J3010; J3430; J3480; J3490; J7030; J7050; J7060; J7070; J7120; J7121; J7512; J7608; P9016; P9017; P9034; Q9967; G0480; U0003-CS